=== PATIENT | female | born 1985 | race Caucasian/White ===

== ENCOUNTER 2020-03-19 14:53 | Emergency (ER) | payer MEDICAID, SELFPAY ==
[~2020-03-19] VITALS: Ht 172.7 cm; Wt 100.1 kg
[2020-03-19] MEDS ORDERED: CLON0.5T17 PO (15:06)
[2020-03-19] MEDS ORDERED: SERT25TA85 PO (15:06)
[2020-03-19] MEDS ORDERED: PEPT262T2 PO (15:06)
[2020-03-19 15:44] LABS: BASO % 0.3 % (0.0-1.0); EOS # 0.2 10^3/uL (0.0-0.5); EOS % 1.8 % (0.0-3.0); HEMATOCRIT 38.8 % (36.0-47.0); HEMOGLOBIN 12.5 g/dl (12.0-15.5); LYMPH # 2.2 10^3/uL (1.5-5.0); MEAN CORPUSCULAR HEMOGLOBIN 27.4 pg (27.0-33.0); MEAN CORPUSCULAR HGB CONC 32.2 g/dl (32.0-36.5); MEAN CORPUSCULAR VOLUME 85.1 fl (80.0-96.0); MONO # 0.6 10^3/uL (0.0-0.8); MONO % 6.5 % (0.0-5.0); PLATELET COUNT, AUTOMATED 281 10^3/uL (150-450); RED BLOOD COUNT 4.56 10^6/uL (4.00-5.40)
[2020-03-19 16:08] LABS: ALT/SGPT 22 U/L (12-78); BILIRUBIN,DIRECT < 0.1 MG/DL (0.0-0.2); BILIRUBIN,TOTAL 0.2 MG/DL (0.2-1.0); BLOOD UREA NITROGEN 10 MG/DL (7-18); CALCIUM LEVEL 9.1 MG/DL (8.5-10.1); CARBON DIOXIDE LEVEL 26 MEQ/L (21-32); CHLORIDE LEVEL 107 MEQ/L (98-107); CREATININE FOR GFR 0.83 MG/DL (0.55-1.30); GLOMERULAR FILTRATION RATE > 60.0 (>60); GLUCOSE, FASTING 94 MG/DL (70-100); LIPASE 123 U/L (73-393); POTASSIUM SERUM 3.8 MEQ/L (3.5-5.1); SODIUM LEVEL 138 MEQ/L (136-145); TOTAL PROTEIN 7.7 GM/DL (6.4-8.2)
[2020-03-19 17:55] VITALS: BP 123/80
== END 2020-03-19 18:10 | disposition home or self-care (01) ==
LOC: M ED 14:53
DX: R10.84 Generalized abdominal pain (principal); K21.9 Gastro-esophageal reflux disease without esophagitis; F17.200 Nicotine dependence, unspecified, uncomplicated; Z79.899 Other long term (current) drug therapy; Z88.6 Allergy status to analgesic agent

== ENCOUNTER 2020-03-24 13:29 | Emergency (ER) | payer SELFPAY ==
[~2020-03-24] VITALS: Ht 172.7 cm; Wt 101.0 kg
[~2020-03-24 13:29] MED LIST: CLON0.5T17 PO; PEPT262T2 PO; SERT25TA85 PO
[2020-03-24] MEDS ORDERED: KETOROLAC 60MG 2ML VIAL IM ONE (14:15)
--- NOTE | 2020-03-24 14:58 | REPVR ---
PROCEDURE INFORMATION: Exam: XR Sacrum and Coccyx, 2 or More Views Exam date and time: 03/24/2020 2:30 PM Age: 35 years old Clinical indication: Pain in coccyx area; Additional info: Fell down stairs TECHNIQUE: Imaging protocol: XR of the sacrum and coccyx, 2 or more views. COMPARISON: No relevant prior studies available. FINDINGS: Bones/joints: On the lateral view, suggestion of the linear lucency projecting through the last coccygeal segment. This area is not clearly resolved due to technical factors. Soft tissues: Normal. IMPRESSION: Linear lucency present projecting through last coccygeal segment. This is probably related to a new normal cartilaginous/disc space. Nondisplaced fracture not excluded. MRI or bone scan might also be useful if clinically relevant Electronically signed by: Nataliia Lezama On 03/24/2020 14:57:52 PM
[2020-03-24 15:23] VITALS: BP 131/69
--- NOTE | 2020-03-25 07:57 | ED PDOC ---
Post-Departure Follow-Up coccyx film faxed to dr wells for fu Abhinav Villegas MD Mar 25, 2020 07:57
== END 2020-03-24 15:24 | disposition home or self-care (01) ==
LOC: M ED 13:29
DX: S32.2XXA Fracture of coccyx, initial encounter for closed fracture (principal); W10.8XXA Fall (on) (from) other stairs and steps, initial encounter; Y92.9 Unspecified place or not applicable; Y99.9 Unspecified external cause status; F17.200 Nicotine dependence, unspecified, uncomplicated; Z88.6 Allergy status to analgesic agent
CPT/HCPCS: 72220; 96372; 99283; J1885

== ENCOUNTER 2020-06-19 15:40 | Emergency (ER) | payer OTHER, SELFPAY ==
[~2020-06-19] VITALS: Ht 172.7 cm; Wt 102.5 kg
[2020-06-19] MEDS ORDERED: SERTRALINE HCL 25 MG TABLET PO ONE (16:30)
[2020-06-19] MEDS ORDERED: clonazePAM 0.5 MG TAB PO ONE (16:30)
[2020-06-19] MEDS ORDERED: ZOLO25TA PO (16:31)
[2020-06-19 16:52] VITALS: BP 137/86
[2020-06-19] MEDS ORDERED: ZOLO50TA PO (16:54)
[2020-06-19] MEDS ORDERED: SERTRALINE HCL 50 MG TAB PO ONE (17:00)
== END 2020-06-19 17:16 | disposition home or self-care (01) ==
LOC: M ED 15:40
DX: Z76.0 Encounter for issue of repeat prescription (principal); K21.9 Gastro-esophageal reflux disease without esophagitis; F41.9 Anxiety disorder, unspecified; F33.9 Major depressive disorder, recurrent, unspecified; F17.200 Nicotine dependence, unspecified, uncomplicated; Z88.6 Allergy status to analgesic agent; Z79.899 Other long term (current) drug therapy

== ENCOUNTER 2020-08-23 15:25 | Emergency (ER) | payer MEDICAID, OTHER ==
[~2020-08-23] VITALS: Ht 175.3 cm; Wt 100.0 kg
[~2020-08-23 15:25] MED LIST changes: +ZOLO25TA PO; +ZOLO50TA PO
--- OUTSIDE RECORDS SUMMARY | 2020-08-23 15:34 | CCD ---
Author Author [facility] Organization [facility] Address Unknown Phone Unavailable Care Team Providers Care Second Worker Name Role Phone PETROFF, RIVAS PA Unavailable Unavailable PETROFF, RIVAS PA Unavailable Unavailable PETROFF, RIVAS PA Unavailable Unavailable PETROFF, RIVAS PA Unavailable Unavailable PETROFF, RIVAS PA Unavailable Unavailable PETROFF, RIVAS PA Unavailable Unavailable PETROFF, RIVAS PA Unavailable Unavailable PETROFF, RIVAS PA Unavailable Unavailable TRACIE C JARRETT Unavailable Unavailable NON, PHYSICIAN STAFF Unavailable Unavailable PETROFF, RIVAS Unavailable [facility]available [facility] Unavailable Re-disclosure Warning The records that you are about to access may contain information from federally-assisted alcohol or drug abuse programs. If such information is present, then the following federally mandated warning applies: This information has been disclosed to you from records protected by federal confidentiality rules (42 CFR part 2). The federal rules prohibit you from making any further disclosure of this information unless further disclosure is expressly permitted by the written consent of the person to whom it pertains or as otherwise permitted by 42 CFR part 2. A general authorization for the release of medical or other information is NOT sufficient for this purpose. The Federal rules restrict any use of the information to criminally investigate or prosecute any alcohol or drug abuse patient.The records that you are about to access may contain highly sensitive health information, the redisclosure of which is protected by Article 27-F of the [facility] Public Health law. If you continue you may have access to information: Regarding HIV / AIDS; Provided by facilities licensed or operated by the [facility] Office of Mental Health; or Provided by the [facility] Office for People With Developmental Disabilities. If such information is present, then the following [facility] mandated warning applies: This information has been disclosed to you from confidential records which are protected by state law. State law prohibits you from making any further disclosure of this information without the specific written consent of the person to whom it pertains, or as otherwise permitted by law. Any unauthorized further disclosure in violation of state law may result in a fine or skilled nursing sentence or both. A general authorization for the release of medical or other information is NOT sufficient authorization for further disc losure. Encounters Encounter Providers Location Date Indications Data Source(s ) Emergency Attender: JARRETT HODGESConsultant: STAFF N ON 06/21/2020 01:39:00 PM EST - 06/21/2020 02:26:00 PM [facility] Patient discharged. Emergency Attender: RIVAS GALDAMEZ EMERGENCY ROOM-ER 03/05 01:19:00 PM EDT - 03/22/2020 05:00:00 PM EDT [facility] Patient discharged. Outpatient Attender: RIVAS Siddiqi stacie: RIVAS PASTORConsultant: 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 [id number] Self [id number] [facility] COMM[employer] XIX [id number] 18 [id number] SELF PAY ONLY [id number] SP [id number] SELF PAY [id number] S [id number] O UNAVAILABLE UNAVAILA BLE EMEDNY [id number] SP [id number] Problems, Conditions, and Diagnoses Code Display Name Description Problem Type Effective Dates Data Source(s) Z760 Encounter for issue of repeat prescripti on Encounter for issue of repeat prescription Diagnosis 06/21/2020 01:39:00 PM [facility] F419 Anxiety disorder, unspecified Anxiety disorder, unspec ified Diagnosis 06/21/2020 01:39:00 PM 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 1 OrderSheet [facility] Emergency Department [address] [place] [address] Phone #: ext- [phone] 06/21/2020 13:31 Patient: SAV MANN Sex: F : 1985 Age: 35yWEIGHT:96.1 kg HEIGHT:69 inches BMI:31.3ALLERGIES: CodieneCHIEF COMPLAINT: pt from out of townDIAGNOSIS: Medication refill, Normal ExamLAB ORDERSOrder Description Priority Entered Acknowledged InitialedDIAGNOSTIC STUDY ORDERSOrder Description Priority Entered Acknowledged InitialedMEDICATION/IV/DRIP/FLUID ORDERSOrder Description Priority Entered Acknowledged InitialedAtivan PO 0.5 mg 14:18 06/21/2020 14:24 Jessica Ramirez(NOW) Nick GALDAMEZ;GENERAL ORDERSOrder Description Priority Entered Acknowledged Initialed[Electronically signed by Jessica Ramirez R.N. (14:26 06/21/2020)][Electronically signed by Nick Escalante (19:01 06/22/2020)][Electronically locked by Jessica Ramirez R.N. (14:26 06/21/2020)] Name Value Range Interpretation Code Description Data Danelle rce(s) Supporting Document(s) ID Date Data Source [id number] 06/21/2020 01:39:00 PM [facility] 1 Medication Reconciliation Report [facility] Emergency Department [address] [place] [address] Phone #: ext- [phone] 06/21/2020 13:31 Patient: SAV MANN Sex: F : 1985 Age: 35yWeight: 96.1 kgHeight/Length: 69 in.BMI: 31.3ALLERGIES: Aidee patient's Home Medications are listed below:CONTINUE TAKING THE FOLLOWING MEDICATIONS: clonazePAM Oral, pt has been out of clonazePAM Oral, pt has been out of PRN OTC acid reflux med PRN OTC acid reflux med Sertraline HCl Oral mg, daily Sertraline HCl Oral mg, dailyThe source(s) of the original Home Medication information:patientThe following Medications were given to the patient in the Emergency Department:Ativan [PO] PO 0.5 mg, administered: 14:24 06/21/2020The following Medications were prescribed to the patient:hydroxyzine HCl 25 mg tablet Take 1 tablet three times a day as needed for 10 days -- Dispense 30tablet. Refills: 0. Substitution permitted.Pharmacy - [facility] [phone] [facility] [address] [address] ; [place] [address]. Phone: . -- RUDOLPH Hull Name Value Range Interpretation Code Description Data Danelle rce(s) Supporting Document(s) ID Date Data Source [id number] 06/21/2020 01:39:00 PM EST [facility] 1 Medication Administration Record [facility] Emergency Department [address] [place] [address] Phone #: ext- [phone] 06/21/2020 13:31 Patient: SAV MANN Sex: F : 1985 Age: 35yWeight: 96.1 kgHeight/Length: 69 inBMI: 31.3ALLERGIES: Codiene Date/Time Medication Administered Medication OrderedGiven ATIVAN [PO] (LORAZEPAM) Ativan PO 0.5 mg (NOW)14:24 06/21/2020 Dose: 0.5 mg Tablets Jessica Menendez R.N. Name Value Range Interpretation Code Description Data Danelle rce(s) Supporting Document(s) ID Date Data Source [id number] 06/21/2020 01:39:00 PM EST [facility] 1 General Instructions [facility] Emergency Department [address] [place] [address] Phone #: ext- [phone] 06/21/2020 13:31 Patient: SAV MANN Sex: F : 1985 Age: 35yMedication refill.Normal exam while in the ED.INSTRUCTIONSWarnings: Further evaluation is necessary.Your Current Medications: Your current home medications have been reviewed.CONTINUE TAKING THE FOLLOWING MEDICATIONS:clonazePAM Oral : pt has been out of.clonazePAM Oral : pt has been out of.PRN OTC acid reflux med*.PRN OTC acid reflux med*.Sertraline HCl Oral : mg daily.Sertraline HCl Oral : mg daily.Prescription Medications:hydroxyzine HCl 25 mg tablet Take 1 tablet three times a day as needed for 10 days -- Dispense 30tablet. Refills: 0. Substitution permitted.Pharmacy - [facility] [phone] [facility] [address] [address] ; [place] [address]. .Follow-up:Follow up with your doctor as scheduled. Reason for referral: evaluation and treatment. Summary of careprovided to patient.Understanding of the discharge instructions verbalized by patient. ADDITIONAL INFORMATIONMedical Screening Exam: No EmergencyYou have had a medical screening exam. The results show that you don't have a condition that needsto be treated in the emergency room.You can safely wait until you can see your healthcare provider for evaluation or treatment. It's up toyou to make an appointment for follow-up care. 2 General Instructions [facility] Emergency Department [address] [place] [address] Phone #: ext- [phone] 06/21/2020 13:31 Patient: SAV MANN Sex: F : 1985 Age: 35yMedical emergenciesIf you think you have a medical emergency, please come to the emergency room. That's what we arehere for. A medical emergency might be severe pain. It might be a condition that gets worse. Or itmight be problems with a .The emergency room is open to all who need treatment. But if you don't think you have a serious orlife-threatening problem, try these other choices.If you have a primary care provider:Call your healthcare provider before coming to the emergency room.After office hours, someone from your doctor's office is on-call by phone. The person on-call may beable to give you advice over the phone on how to take care of the problem.You may be able to get an appointment to see your provider or be referred to an urgent care center.If you don't have a primary care provider:Call the referral doctor or clinic shown below during office hours. You should be able to make anappointment to be seen.If you aren't sure whether you are having an emergency, you can always return to the emergencydepartment to be looked at.Phone advice from the emergency departmentWe are here 24 hours a day to give emergency care. But this [facility] does not give phone advice formedical conditions. If you need advice for a condition that can't wait to be seen by your doctor, youwill need to come back to this facility in person. [employer]. [address] [place] [address], [place] [address]. All rights reserved. This information is not intended as asubstitute for professional medical care. Always follow your healthcare professional's instructions. You have been given the following additional information: Medical Screening Exam, Nonemergent 3 General Instructions [facility] Emergency Department [address] [place] [address] Phone #: ext- [phone] 06/21/2020 13:31 Patient: SAV MANN Sex: F : 1985 Age: 35y(Electronically signed by RUDOLPH Hull 06/22/2020 19:01) Name Value Range Interpretation Code Description Data Danelle rce(s) Supporting Document(s) ID Date Data Source [id number] 06/21/2020 01:39:00 PM EST [facility] 1 Clinical Report - Nurses [facility] Emergency Department [address] [place] [address] Phone #: ext- [phone] 06/21/2020 13:31 Patient: SAV MANN Sex: F : 1985 Age: 35yTRIAGEArrived by private vehicle. Historian: patient. ( [facility] pt was denied clonazapam refill at [facility] 2 days ago but sertralinewas refilled.).Triage time: 13:36 06/21/2020. Acuity: LEVEL 5.Chief Complaint: (pt reports she had a panic attack at work. pt was seen at [facility] day before yesterday formed refill and given PSA consult to see a PCM sooner than Aug. Pt reports that she was given sertraline [facility]. Pt has appt start of July. Pt establishing with intake at [facility].).Alert.This started today. --13:42 06/21/20 Cira Huffman R.N.13:36 06/21/20. BP: 130/88. HR: 84. RR: 20. O2 saturation: 99%. Temp: 98.1 F. Pain level now 0/10.--13:42 06/21/20 Cira Huffman R.N.Chief Complaint: PRESCRIPTION REFILL REQUEST. --13:42 06/21/20 Cira Huffman R.N.Weight: 96.1 kg. Height/Length: 69 inches. BMI: 31.3. --13:36 06/21/20 Cira Huffman R.N.MedicationsSertraline HCl Oral mg, daily. Sertraline HCl Oral mg, daily. --13:38 06/21/20 Cira Huffman R.N. clonazePAM Oral (pt has been out of). clonazePAM Oral (pt has been out of). --13:39 06/21/20 Cira Huffman R.N. PRN OTC acid reflux med. PRN OTC acid reflux med. --13:40 06/21/20 Cira Huffman R.N.AllergiesCodiene. --13:38 06/21/20 Cira Huffman R.N.Medication/allergy information source: the patient. --13:42 06/21/20 Cira Huffman R.N.HistoryPAST MEDICAL HX: Last normal menstrual period- 6 days ago.SOCIAL HX: Smoker- current status unknown. Occasional alcohol use. No drug use. The patient wasoffered HIV testing but declined and hepatitis C testing but declined.SELF HARM ASSESSMENT: Self harm assessment was performed. The patient answered "no" to thequestion(s) "Have you recently felt down, depressed, or hopeless?", "Do you have thoughts of harming or 2 Clinical Report - Nurses [facility] Emergency Department [address] [place] [address] Phone #: [phone]- [phone] 06/21/2020 13:31 Patient: SAV MANN Sex: F : 1985 Age: 35y killing yourself?", "Do you have a plan for harming or killing yourself?", "Have you recently had thoughts about harming or killing others?", "Do you have any dangerous items in your possession?", "Have you noticed less interest or pleasure in doing things?", "Are you here because you tried to hurt yourself?" and "Have you ever tried to hurt yourself before today?". ABUSE ASSESSMENT: Abuse assessment. No suspicion of abuse. No report of abuse. NUTRITIONAL RISK ASSESSMENT: The nutritional risk assessment revealed no deficiencies. FUNCTIONAL ASSESSMENT: Functional assessment: no impairments noted. LEARNING NEEDS ASSESSMENT: The learning needs assessment revealed no barriers. FALL RISK ASSESSMENT: Fall risk assessment completed per protocol. SKIN INTEGRITY ASSESSMENT: Skin integrity risk assessment completed. No skin integrity risk identified. --13:42 06/21/20 Cira Huffman R.N. SOCIAL HX: The patient has not traveled outside the [place] Infectious disease exposure: No infectious disease exposure. --14:26 06/21/20 Jessica Ramirez R.N.PHYSICAL ASSESSMENTGENERAL / NEURO / PSYCH: Alert. Oriented X 4. Appears in no acute distress.HEENT: Mucous membranes are pink.RESPIRATORY: Respirations not labored. CVS: Pulses within normal limits.GI / : Abdomen soft and nontender.SKIN: Skin is warm and dry. --13:43 06/21/20 Cira Huffman R.N.NURSING PROGRESS NOTESThe plan of care for this patient has been created. Head of bed elevated. Reassurance given. Call lightplaced in reach. Bed placed in lowest position. Brakes of bed on. Patient ready for evaluation. --13: Cira Huffman R.N. 14:24 06/21/2020 Ativan (LORazepam) PO Tablets 0.5 mg given. Allergies verified and confirmed 5 rights. Information reviewed with patient including reason for taking this medication, signs of allergic reaction, precautions and sedative warning. Verbalizes understanding. --14:24 06/21/20 Jessica Ramirez R.N.DISPOSITION / DISCHARGE Condition at departure: unchanged. No learning barriers present. Discharge instructions provided and reviewed with the patient. Reviewed medication(s) side effects, precautions, dosing and course information. Prescription(s) given to the patient and sent electronically to pharmacy. Patient verbalized understanding. Written instructions provided in Russian. The patient was discharged home and accompanied by horse trekking guide. She left ambulatory and via private vehicle. Chrome Tanner driving. --14:25 3 Clinical Report - Nurses [facility] Emergency Department [address] [place] [address] Phone #: ext- [phone] 06/21/2020 13:31 [id number] Sex[facility] : 1985 Age: 35y 06/21/20 Jessica Ramirez R.N. 14:24 06/21/20. BP: 126/98. MAP: 107. HR: 86. RR: 17. O2 saturation: 97%. Temp: 98 F. Pain level now: 0/10. --14:25 06/21/20 Jessica Ramirez R.N. Departure time: 14:25 06/21/2020. --14:25 06/21/20 Jessica Ramirez R.N.Locked/Released at 06/21/2020 14:26 by Jessica Ramirez R.N. Name Value Range Interpretation Code Description Data Danelle rce(s) Supporting Document(s) ID Date Data Source [id number] 06/21/2020 01:39:00 PM EST [facility] 1 Clinical Report - Physicians/Mid Levels [facility] Emergency Department [address] [place] [address] Phone #: ext- [phone] 06/21/2020 13:31 Patient: SAV MANN Sex: F : 1985 Age: 35y Time Seen: 14:05 06/21/2020. Arrived- By private vehicle. Historian- patient.HISTORY OF PRESENT ILLNESS Chief Complaint: Anxiety and out of medication. PRESCRIPTION REFILL REQUEST. Patient is from out of town. This started 2 days ago; pt states she was told to come here by behavioral health for a couple of weeks worth of med refill. pt was denied clonazapam refill at [facility] 2 days ago but sertraline was refilled. and is still present. At its maximum, se verity described as moderate. When seen in the E.D., severity described as moderate. No loss of appetite, weight loss, headache, visual disturbance or fatigue. No muscle aches or weakness. Denies sleep problem. No decreased urine output. Similar symptoms previously. Patient has had similar symptoms several times. Recent medical care: The patient was seen recently at another facility in the emergency department.REVIEW OF SYSTEMSLast normal menstrual period- 6 days ago. No fever, sore throat, sinus drainage, nasal congestion orcough. No difficulty breathing, chest pain, abdominal pain, nausea or vomiting. No diarrhea, black stools,bloody stools, chills or difficulty with urination. No abnormal bleeding, skin rash, back pain, calf pain orheadache. No blackouts or double vision. No difficulty with ambulation.SOCIAL HISTORYSmoker - current status unknown. No alcohol use or drug use.PHYSICAL EXAMVital Signs: 06/21/2020 13:36 BP: 130/88. MAP: 102. HR: 84. RR: 20. O2 saturation: 99%. Temp: 98.1 F.Have been reviewed as normal. Oxygen saturation normal.Appearance: Alert. No acute distress.Eyes: Pupils equal, round and reactive to light. Eyes normal inspection.ENT: Ears normal. Nose normal. Pharynx normal.Neck: Normal inspection.CVS: Normal heart rate. Heart sounds normal.Respiratory: No respiratory distress. Breath sounds normal.Abdomen: No visible injury. Soft and nontender. Bowel sounds normal. No organomegaly. No mass.Back: Normal inspection.Skin: Skin warm and dry. Normal skin color. No rash. Normal skin turgor.Extremities: Extremities exhibit normal ROM. No lower extremity edema.Neuro: Oriented X 3.PROGRESS AND PROCEDURESCourse of Care: 14:Jun 21 2020. Evaluation after observation. (Discussed need for follow up with [facility] Clinical Report - Physicians/Mid Levels [facility] Emergency Department [address] [place] [address] Phone #: ext- [phone] 06/21/2020 13:31 Patient: SAV MANN [facility]#: [id number] Sex: F : 1985 Age: 35y and PCP for refill of clonazepam and pt is agreeable with dx and tx plan.). Patient counseled in person regarding the patient's stable condition, diagnosis and need for follow-up. Patient agrees with plan of care. 14:Jun 21 2020. Disposition: Discharged home in good and improved condition (14:16 Jun 21 2020).CLINICAL IMPRESSION Medication refill. Normal exam while in the ED.INSTRUCTIONS Warnings: Further evaluation is necessary. Your Current Medications: Your current home medications have been reviewed. CONTINUE TAKING THE FOLLOWING MEDICATIONS: clonazePAM Oral : pt has been out of. clonazePAM Oral : pt has been out of. PRN OTC acid reflux med*. PRN OTC acid reflux med*. Sertraline HCl Oral : mg daily. Sertraline HCl Oral : mg daily. Prescription Medications: hydroxyzine HCl 25 mg tablet Take 1 tablet three times a day as needed for 10 days -- Dispense 30 tablet. Refills: 0. Substitution permitted. Pharmacy - [facility] [phone] [facility] [address] [address] [address] ; [place] [address]. . Follow-up: Follow up with your doctor as scheduled. Reason for referral: evaluation and treatment. Summary of care provided to patient. Understanding of the discharge instructions verbalized by patient.(Electronically signed by RUDOLPH Hull 06/22/2020 19:01) 3Clinical Report - Physicians/Mid Levels [facility] Emergency Department [address] [place] [address] Phone #: ext- [phone] 06/21/2020 13:31 Patient: SAV MANN Sex: F : 1985 Age: 35y Name Value Range Interpretation Code Description Data Danelle rce(s) Supporting Document(s) ID Date Data Source [id number] 03/22/2020 06:55:00 PM [facility] Patient: SAV MANN Observation Rep ort - Physicians/Mid Levels Healthcare.VisitID: [id number] [place] [address] [phone], FRegistration Date/Time: 03/22/2020 12:00 Weight:97.5 kg (S). Height/Length:68 inches (S). BMI:32.7 FAMILY HISTORYPaternal grandmother: Cancer. Mother: Heart Disease. Father: Hypertension. INSTRUCTIONSYour Current Medications: Your current home medications have been reviewed. CONTINUE TAKING THE FOLLOWING MEDICATIONS:clonazePAM Oral : Tablet 0.5 mg, 1 tablet 2x a day, Last: 03/22/20201100. Phazyme Oral : Capsule 180 mg, 2 capsules daily, Last: 03/21/20202000. Zoloft Oral : 75 mg daily, Last: 03/21/20201800. (Electronically signed by Rivas Pastor P.A. 03/22/2020 18:51) Name Value Range Interpretation Code Description Data Danelle rce(s) Supporting Document(s) ID Date Data Source [id number] 03/22/2020 04:37:00 PM EDT [facility] TSYSORDER [id number] Name Value Range Interpretation Code Description Data Danelle rce(s) Supporting Document(s) TROPONIN I < 0.017 ng/mL 0.0-0.056 [facility] ID Date Data Source [id number] 03/22/2020 02:17:[address] [facility] DATE OF EXAMINATION: 03/22/2020 12:44 EDT CHEST 2 VIEWS HISTORY: Shortness of breath TECHNIQUE: PA and lateral radiographs of the chest COMPARISON: None. FINDINGS: No evidence of focal consolidation, pneumothorax or large pleural effusion.Lungs are clear. Mediastinal structures are unremarkable. No aggressive osseouslesions. IMPRESSION: No focal consolidation. Electronically signed in [id number] by: Caren Robledo M.D. 03/22/2020 14:11 EDT Name Value Range Interpretation Code Description Data Danelle rce(s) Supporting Document(s) ID Date Data Source [id number] 03/22/2020 01:45:00 PM EDT [facility] TSYSORDER [id number] Name Value Range Interpretation Code Description Data Danelle rce(s) Supporting Document(s) LACTIC ACID 0.9 mmol/L 0.4-2.0 [facility] ID Date Data Source [id number] 03/22/2020 01:45:00 PM EDT [facility] Name Value Range Interpretation Code Description Data Danelle rce(s) Supporting Document(s) TROPONIN I < 0.017 ng/mL 0.0-0.056 [facility] ID Date Data Source [id number] 03/22/2020 01:45:00 PM EDT [facility] Name Value Range Interpretation Code Description Data Danelle rce(s) Supporting Document(s) GLUCOSE 89 mg/dL 74-106 [facility] BLOOD UREA NITROGEN 10 mg/dL 7-18 [facility] CREATININE 0.9 mg/dL 0.6-1.0 [facility] SODIUM 139 mmol/L 136-145 [facility] POTASSIUM 3.7 mmol/L 3.5-5.1 [facility] CHLORIDE 101 mmol/L 98-107 [facility] CO2 29 mmol/L 21-32 [facility] CALCIUM 8.5 mg/dL 8.5-10.1 [facility] ANION GAP 9.0 mmol/L 5-12 [facility] GLOMERULAR FILTRATION RATE 71 mL/min [facility] GFR IS CALCULATED IN mL/min/1.73m2 BAR L FUNCTION: >90MILDLY DECREASED: 60-89MILDY TO MODERATELY DECREASED: 45-59 MODERATELY TO SEVERELY DECREASED: 30-44SEVERELY DECREASED: 15-29RENAL FAILURE: <15 AST 15 U/L 15-37 [facility] ALT 23 U/L 12-78 [facility] ALKALINE PHOSPHATASE 87 U/L 46-116 [facility] pital TOTAL BILIRUBIN 0.2 mg/dL 0.2-1.0 [facility] TOTAL PROTEIN 7.7 g/dl 6.4-8.2 [facility] ALBUMIN 4.2 gm/dL 3.4-5.0 [facility] ID Date Data Source [id number] 03/22/2020 01:39:[address] [id number] Name Value Range Interpretation Code Description Data [facility] rce(s) Supporting Document(s) URINE RBC TNTC /hpf 0-3 H [facility] URINE WBC 0-2 /hpf 0-5 H [facility] URINE BACTERIA TRACE NONE SEEN H [facility] ID Date Data Source [id number] 03/22/2020 01:33:[address] [facility] ital TSYSORDER [id number] Name Value Range Interpretation Code Description Data [facility] rce(s) Supporting Document(s) URINE COLOR. YELLOW [facility] URINE APPEARANCE CLEAR [facility] l SPECIFIC GRAVITY,URINE 1.020 1.001-1.035 [facility] URINE LEUKOCYTE ESTERASE NEGATIVE NEGATIVE [facility] URINE NITRATE NEGATIVE NEGATIVE [facility] PH,URINE 7.0 5.0-9.0 [facility] URINE PROTEIN NEGATIVE mg/dL NEGATIVE [facility] URINE GLUCOSE (UA) NEGATIVE mg/dL NEGATIVE [facility] URINE KETONE NEGATIVE mg/dL NEGATIVE [facility] URINE UROBILINOGEN NORMAL(0.2-1) mg/dL 0-1 R [facility] URINE BILIRUBIN NEGATIVE NEGATIVE [facility] URINE BLOOD 3+(LARGE) NEGATIVE H [facility] ID Date Data Source [id number] 03/22/2020 01:34:00 PM EDT [facility] TSYSORDER [id number] Name Value Range Interpretation Code Description Data Danelle rce(s) Supporting Document(s) HCG,SERUM NEGATIVE NEGATIVE [facility] False negative results may occur when th e levels of hCG arebelow the sensitivity level of the test. If isstill suspected, a first morning urine specimen should becollected 48hrs later.This test has a sensitivity of 10mIU/mL in serum fpv76tKX/mL in urine. ID Date Data Source [id number] 03/22/2020 01:21:00 PM EDT [facility] TSYSORDER [id number] Name Value Range Interpretation Code Description Data Danelle rce(s) Supporting Document(s) WHITE BLOOD COUNT 9.5 K/mm3 4.0-10.0 [facility] RED BLOOD COUNT 4.51 M/mm3 4.00-5.50 [facility] HEMOGLOBIN 12.2 gm/dL 12.0-16.0 [facility] HEMATOCRIT 37.1 % 36.0-48.8 [facility] MEAN CELL VOLUME 82.3 fl 80-96 [facility] MEAN CORPUSCULAR HEMOGLOBIN 27.1 pg 27.0-31.0 [facility] MEAN CORPUSCULAR HGB CONC 32.9 g/dl 32.0-36.0 [facility] RED CELL DISTRIBUTION WIDTH 14.8 % 10.0-14.5 H [facility] PLATELET COUNT 303 K/mm3 172-450 [facility] MEAN PLATELET VOLUME 10.7 fl 9.0-13.0 [facility] pital GRAN % 68.6 % 50-80.0 [facility] IG% 0.1 % 0.0-0.2 [facility] LYMPH % 22.3 % 25.0-50.0 L [facility] MONO % 6.6 % 2.0-10.0 [facility] EOS % 1.9 % 0-5.0 [facility] BASO % 0.5 % 0.0-2.0 [facility] GRAN # 6.5 K/mm3 2.0-8.00 [facility] IG# 0.0 K/mm3 0.0-0.2 [facility] LYMPH # 2.1 K/mm3 1.0-5.0 [facility] MONO # 0.6 K/mm3 0.10-1.20 [facility] EOS # 0.2 K/mm3 0.0-0.5 [facility] BASO # 0.1 K/mm3 0.0-0.2 [facility] Procedure
[2020-08-23] MEDS ORDERED: NS 1,000 ML IV ONE (17:00)
[2020-08-23] MEDS ORDERED: KETOROLAC 30 MG/ML 1ML VIAL IV ONE (17:00)
--- OUTSIDE RECORDS SUMMARY | 2020-08-23 17:06 | CCD ---
Author Author [facility] Organization [facility] Address Unknown Phone Unavailable Care Team Providers Care Ton Container Shipper Name Role Phone PETROFF, RIVAS PA Unavailable [...] is protected by Article 27-F of the [facility] Public Health law. If you continue you may have access to information: Regarding HIV / AIDS; Provided by facilities licensed or operated by the [facility] Office of Mental Health; or Provided by the [facility] Office for People With Developmental Disabilities. If such information is present, then the following [facility] mandated warning applies: This information has [...] law may result in a fine or correction sentence or both. A general authorization for the release of medical or other information is NOT sufficient authorization for further disc losure. Encounters Encounter Providers Location Date Indications Data Source(s ) Emergency Attender: JARRETT HODGESConsultant: STAFF N ON 06/21/2020 01:39:00 PM EST - 06/21/2020 02:26:00 PM [facility] Patient discharged. Emergency Attender: RIVAS GALDAMEZ EMERGENCY ROOM-ER 03/05 01:19:00 PM EDT - 03/22/2020 05:00:00 PM EDT [facility] Patient discharged. Outpatient Attender: RIVAS Siddiqi stacie: RIVAS PASTORConsultant: [facility] [id number] 03/22/2020 01:00:00 PM EDT [facility] Insurance Providers Payer name Policy type / Coverage type Policy ID Covered constitution party ID Covered constitution party's relationship to quintana Policy Quintana Plan Information [facility] [id number] SP [id number] [facility] [id number] SP [id number] ESCREEN NATIONAL [employer]OUNT emp [id number] Employee [id number] [employer] [id number] Self [id number] [facility] [employer] [employer] XIX [id number] 18 [id number] SELF PAY ONLY [id number] SP [id number] SELF PAY [id number] S [id number] O UNAVAILABLE UNAVAILA BLE EMEDNY [id number] SP [id number] Problems, Conditions, and Diagnoses Code Display Name Description Problem Type Effective Dates Data Source(s) Z760 Encounter for issue of repeat prescripti on Encounter for issue of repeat prescription Diagnosis 06/21/2020 01:39:00 PM [facility] F419 Anxiety disorder, unspecified Anxiety disorder, unspec ified Diagnosis 06/21/2020 01:39:00 PM [facility] Z79.899 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 long term care pharmacist (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) drug therapy O THER ALF (CURRENT) DRUG THERAPY Diagnosis 03/22/2020 01:19:00 PM EDT [facility] F17.210 Nicotine dependence, cigarettes, uncompl icated NICOTINE DEPENDENCE, CIGARETTES, UNCOMPLICATED Diagnosis 03/22/2020 01:19:00 PM EDT [facility] ospital R55 Syncope and collapse SYNCOPE AND COLLAPSE Diagnosis 03/22/2020 01:19:00 PM EDT [facility] Results ID Date Data Source [id number] 06/21/2020 01:39:00 PM [facility] 1 OrderSheet [facility] Emergency Department [address] [place] [address] Phone #: ext- [phone] 06/21/2020 13:31 Patient: [...] rce(s) Supporting Document(s) ID Date Data Source [id number] 06/21/2020 01:39:00 PM [facility] 1 Medication Reconciliation Report [facility] Emergency Department [address] [place] [address] Phone #: ext- [phone] 06/21/2020 13:31 Patient: [...] Dispense 30tablet. Refills: 0. Substitution permitted.Pharmacy - [facility] [phone] ; [place] [address]. Phone: . -- RUDOLPH Hull Name Value Range Interpretation Code Description Data Danelle rce(s) Supporting Document(s) ID Date Data Source [id number] 06/21/2020 01:39:00 PM EST [facility] 1 Medication Administration Record [facility] Emergency Department [address] [place] [address] Phone #: ext- [phone] 06/21/2020 13:31 Patient: SAV MANN Sex: F : 1985 Age: 35yWeight: 96.1 kgHeight/Length: 69 inBMI: 31.3ALLERGIES: Codiene Date/Time Medication Administered Medication OrderedGiven ATIVAN [PO] (LORAZEPAM) Ativan PO 0.5 mg (NOW)14:24 06/21/2020 Dose: 0.5 mg Tablets Jessica Menendez R.N. Name Value Range Interpretation Code Description Data Danelle rce(s) Supporting Document(s) ID Date Data Source [id number] 06/21/2020 01:39:00 PM EST [facility] 1 General Instructions [facility] Emergency Department [address] [place] [address] Phone #: ext- [phone] 06/21/2020 13:31 Patient: [...] Dispense 30tablet. Refills: 0. Substitution permitted.Pharmacy - [facility] [phone] ; [place] [address]. .Follow-up:Follow up with your doctor as scheduled. [...] appointment for follow-up care. 2 General Instructions [facility] Emergency Department [address] [place] [address] Phone #: ext- [phone] 06/21/2020 13:31 Patient: SAV MANN Sex: F [...] day to give emergency care. But [facility] does not give phone advice formedical conditions. If you need advice for a condition that can't wait to be seen by your doctor, youwill need to come back to this facility in person. The [employer]. [address] [place] [address], [place] [address]. All rights reserved. This information is not intended as asubstitute for professional medical care. Always follow your healthcare professional's instructions. You have been given the following additional information: Medical Screening Exam, Nonemergent 3 General Instructions [facility] Emergency Department [address] [place] [address] Phone #: ext- [phone] 06/21/2020 13:31 Patient: SAV MANN Sex: F : 1985 Age: 35y(Electronically signed by RUDOLPH Hull 06/22/2020 19:01) Name Value Range Interpretation Code Description Data Danelle rce(s) Supporting Document(s) ID Date Data Source [id number] 06/21/2020 01:39:00 PM EST [facility] 1 Clinical Report - Nurses [facility] Emergency Department [address] [place] [address] Phone #: ext- [phone] 06/21/2020 13:31 Patient: SAV MANN Sex: F : 1985 Age: 35yTRIAGEArrived by private vehicle. Historian: patient. ( pt [facility]. pt was [facility] 2 days ago but sertralinewas refilled.).Triage time: 13:36 06/21/2020. Acuity: LEVEL 5.Chief Complaint: (pt reports she had a panic attack at work. pt was seen at [facility] day before yesterday formed refill and given PSA consult to see a PCM sooner than Aug. Pt reports that she was given sertraline [facility]. Pt has appt start of July. Pt establishing with intake at [facility].).Alert.This started today. --13:42 06/21/20 Cira [...] harming or 2 Clinical Report - Nurses [facility] Emergency Department [address] [place] [address] Phone #: fir- [phone] 06/21/2020 13:31 Patient: SAV MANN Sex: F [...] Patient verbalized understanding. Written instructions provided in Burmese. 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 She left ambulatory and via private vehicle. 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 --14:25 3 Clinical Report - Nurses [facility] Emergency Department [address] [place] [address] Phone #: ext- [phone] 06/21/2020 13:31 [id number] Sex: F : 1985 Age: 35y 06/21/20 [...] rce(s) Supporting Document(s) ID Date Data Source [id number] 06/21/2020 01:39:00 PM EST [facility] 1 Clinical Report - Physicians/Mid Levels [facility] Emergency Department [address] [place] [address] Phone #: ext- [phone] 06/21/2020 13:31 Patient: [...] refill. pt was denied clonazapam refill at [facility] 2 days ago but sertraline was refilled. [...] observation. (Discussed need for follow up with [facility] Clinical Report - Physicians/Mid Levels [facility] Emergency Department [address] [place] [address] Phone #: ext- [phone] 06/21/2020 13:31 Patient: SAV MANN [facility]#: [id number] Sex: F : 1985 Age: 35y and [...] tablet. Refills: 0. Substitution permitted. Pharmacy - [facility] [phone] ; [place] [address]. . Follow-up: Follow up with your doctor as scheduled. Reason for referral: evaluation and treatment. Summary of care provided to patient. Understanding of the discharge instructions verbalized by patient.(Electronically signed by RUDOLPH Hull 06/22/2020 19:01) 3Clinical Report - Physicians/Mid Levels [facility] Emergency Department [address] [place] [address] Phone #: ext- [phone] 06/21/2020 13:31 Patient: SAV MANN Sex: F : 1985 Age: 35y Name Value Range Interpretation Code Description Data Danelle rce(s) Supporting Document(s) ID Date Data Source [id number] 03/22/2020 06:55:00 PM EDT [facility] Patient: SAV MANN Observation Rep ort - Physicians/Mid Levels [facility]VisitID: [id number] [place] [address] [phone], FRegistration Date/Time: 03/22/2020 12:00 Weight:97.5 kg (S). [...] rce(s) Supporting Document(s) ID Date Data Source [id number] 03/22/2020 04:37:00 PM EDT [facility] TSYSORDER [id number] Name Value Range Interpretation Code Description Data Danelle rce(s) Supporting Document(s) TROPONIN I < 0.017 ng/mL 0.0-0.056 [facility] ID Date Data Source [id number] 03/22/2020 02:17:00 PM [facility]T [facility] DATE OF [facility]AMINATION: 03/22/2020 12:44 EDT CHEST [...] rce(s) Supporting Document(s) ID Date Data Source [id number] 03/22/2020 01:45:00 PM EDT [facility] TSYSORDER [id number] Name Value Range Interpretation Code Description Data Danelle rce(s) Supporting Document(s) LACTIC ACID 0.9 mmol/L 0.4-2.0 [facility] ID Date Data Source [id number] 03/22/2020 01:45:00 PM EDT [facility] Name Value Range Interpretation Code Description Data Danelle rce(s) Supporting Document(s) TROPONIN I < 0.017 ng/mL 0.0-0.056 [facility] ID Date Data Source [id number] 03/22/2020 01:45:00 PM EDT [facility] Name Value Range Interpretation Code Description Data Danelle rce(s) Supporting Document(s) GLUCOSE 89 mg/dL 74-106 [facility] BLOOD UREA NITROGEN 10 mg/dL 7-18 [facility] ital CREATININE 0.9 mg/dL 0.6-1.0 [facility] SODIUM 139 mmol/L 136-145 [facility] POTASSIUM 3.7 mmol/L 3.5-5.1 [facility] CHLORIDE 101 mmol/L 98-107 [facility] CO2 29 mmol/L 21-32 [facility] CALCIUM 8.5 mg/dL 8.5-10.1 [facility] ANION GAP 9.0 mmol/L 5-12 [facility] GLOMERULAR FILTRATION RATE 71 mL/min [facility] GFR IS CALCULATED IN mL/min/1.73m2 BAR L FUNCTION: >90MILDLY DECREASED: 60-89MILDY TO MODERATELY DECREASED: 45-59 MODERATELY TO SEVERELY DECREASED: 30-44SEVERELY DECREASED: 15-29RENAL FAILURE: <15 AST 15 U/L 15-37 [facility] ALT 23 U/L 12-78 [facility] ALKALINE PHOSPHATASE 87 U/L 46-116 [facility] pital TOTAL BILIRUBIN 0.2 mg/dL 0.2-1.0 [facility] TOTAL PROTEIN 7.7 g/dl 6.4-8.2 [facility] ALBUMIN 4.2 gm/dL 3.4-5.0 [facility] ID Date Data Source [id number] 03/22/2020 01:39:00 PM EDT [facility] [id number] Name Value Range Interpretation Code Description Data [facility] rce(s) Supporting Document(s) URINE RBC TNTC /hpf 0-3 H [facility] URINE WBC 0-2 /hpf 0-5 H [facility] URINE BACTERIA TRACE NONE SEEN H [facility] ID Date Data Source [id number] 03/22/2020 01:33:00 PM EDT [facility] ital TSYSORDER [id number] Name Value Range Interpretation Code Description Data [facility] rce(s) Supporting Document(s) URINE COLOR. YELLOW [facility] URINE APPEARANCE CLEAR [facility] l SPECIFIC GRAVITY,URINE 1.020 1.001-1.035 [facility] URINE LEUKOCYTE ESTERASE NEGATIVE NEGATIVE [facility] URINE NITRATE NEGATIVE NEGATIVE [facility] PH,URINE 7.0 5.0-9.0 [facility] URINE PROTEIN NEGATIVE mg/dL NEGATIVE [facility] URINE GLUCOSE (UA) NEGATIVE mg/dL NEGATIVE [facility] URINE KETONE NEGATIVE mg/dL NEGATIVE [facility] URINE UROBILINOGEN NORMAL(0.2-1) mg/dL 0-1 R [facility] URINE BILIRUBIN NEGATIVE NEGATIVE [facility] URINE BLOOD 3+(LARGE) NEGATIVE H [facility] ID Date Data Source [id number] 03/22/2020 01:34:00 PM EDT [facility] TSYSORDER [id number] Name Value Range Interpretation Code Description Data Danelle rce(s) Supporting Document(s) HCG,SERUM NEGATIVE NEGATIVE [facility] False negative results may occur when th e levels of hCG arebelow the sensitivity level of the test. If isstill suspected, a first morning urine specimen should becollected 48hrs later.This test has a sensitivity of 10mIU/mL in serum dbn74mMN/mL in urine. ID Date Data Source [id number] 03/22/2020 01:21:00 PM EDT [facility] TSYSORDER [id number] Name Value Range Interpretation Code Description Data Danelle rce(s) Supporting Document(s) WHITE BLOOD COUNT 9.5 K/mm3 4.0-10.0 [facility] RED BLOOD COUNT 4.51 M/mm3 4.00-5.50 [facility] HEMOGLOBIN 12.2 gm/dL 12.0-16.0 [facility] HEMATOCRIT 37.1 % 36.0-48.8 [facility] MEAN CELL VOLUME 82.3 fl 80-96 [facility] MEAN CORPUSCULAR HEMOGLOBIN 27.1 pg 27.0-31.0 [facility] MEAN CORPUSCULAR HGB CONC 32.9 g/dl 32.0-36.0 [facility] RED CELL DISTRIBUTION WIDTH 14.8 % 10.0-14.5 H [facility] PLATELET COUNT 303 K/mm3 172-450 [facility] MEAN PLATELET VOLUME 10.7 fl 9.0-13.0 [facility] pital GRAN % 68.6 % 50-80.0 [facility] IG% 0.1 % 0.0-0.2 [facility] LYMPH % 22.3 % 25.0-50.0 L [facility] MONO % 6.6 % 2.0-10.0 [facility] EOS % 1.9 % 0-5.0 [facility] BASO % 0.5 % 0.0-2.0 [facility] GRAN # 6.5 K/mm3 2.0-8.00 [facility] IG# 0.0 K/mm3 0.0-0.2 [facility] LYMPH # 2.1 K/mm3 1.0-5.0 [facility] MONO # 0.6 K/mm3 0.10-1.20 [facility] EOS # 0.2 K/mm3 0.0-0.5 [facility] BASO # 0.1 K/mm3 0.0-0.2 [facility] Procedure
[2020-08-23 17:29] LABS: BASO # 0.1 10^3/uL (0.0-0.2); BASO % 0.7 % (0.0-1.0); EOS # 0.2 10^3/uL (0.0-0.5); HEMATOCRIT 37.9 % (36.0-47.0); HEMOGLOBIN 11.8 g/dl (12.0-15.5); LYMPH # 2.2 10^3/uL (1.5-5.0); LYMPH % 29.3 % (24.0-44.0); MEAN CORPUSCULAR HEMOGLOBIN 26.7 pg (27.0-33.0); MEAN CORPUSCULAR HGB CONC 31.1 g/dl (32.0-36.5); MEAN CORPUSCULAR VOLUME 85.7 fl (80.0-96.0); MONO # 0.5 10^3/uL (0.0-0.8); MONO % 6.6 % (2.0-8.0); NEUTROPHILS # 4.6 10^3/uL (1.5-8.5); PLATELET COUNT, AUTOMATED 249 10^3/uL (150-450); RED BLOOD COUNT 4.42 10^6/uL (4.00-5.40); WHITE BLOOD COUNT 7.5 10^3/uL (4.0-10.0)
[2020-08-23 17:44] LABS: INR 0.97; PROTHROMBIN TIME 13.1 SECONDS (12.5-14.3)
[2020-08-23 17:45] LABS: PARTIAL THROMBOPLASTIN TIME 27.1 SECONDS (24.2-38.5)
[2020-08-23 17:47] LABS: D-DIMER QUANT 359.19 ng/ml (<500)
[2020-08-23 18:01] LABS: ALBUMIN 3.6 GM/DL (3.2-5.2); ALT/SGPT 19 U/L (12-78); BILIRUBIN,DIRECT < 0.1 MG/DL (0.0-0.2); BILIRUBIN,TOTAL 0.2 MG/DL (0.2-1.0); CK-MB VALUE MASS < 1.0 NG/ML (<3.6); CPK CREATINE PHOSPHOKINASE 75 U/L (26-192); FREE T4 0.68 NG/DL (0.76-1.46); LIPASE 152 U/L (73-393); MB/CK RELATIVE INDEX 1.33 (< OR =4); TOTAL PROTEIN 6.5 GM/DL (6.4-8.2); TROPONIN I < 0.02 NG/ML (< 0.10)
--- NOTE | 2020-08-23 18:02 | REP ---
INDICATION: pain. COMPARISON: None. TECHNIQUE: Three views FINDINGS: AC joint shows no widening of the joint space or elevation of the clavicle in relationship to the acromion. There is no fracture of the clavicle, scapula, humerus or adjacent ribs. Glenohumeral joint unremarkable. No abnormal soft tissue calcifications are seen. IMPRESSION: 1. Negative left shoulder series. <Electronically signed by Santo Navarro > 08/23/20 1118
[2020-08-23 18:55] VITALS: BP 127/88
--- NOTE | 2020-08-24 20:45 | ECGEPIP ---
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
== END 2020-08-23 19:04 | disposition home or self-care (01) ==
LOC: M ED 15:25
DX: E03.9 Hypothyroidism, unspecified (principal); S46.912A Strain of unspecified muscle, fascia and tendon at shoulder and upper arm level, left arm, initial encounter; X58.XXXA Exposure to other specified factors, initial encounter; Y92.9 Unspecified place or not applicable; Y93.9 Activity, unspecified; Y99.9 Unspecified external cause status; F17.200 Nicotine dependence, unspecified, uncomplicated; Z88.6 Allergy status to analgesic agent; Z79.899 Other long term (current) drug therapy
CPT/HCPCS: 73030; 80047; 80076; 81001; 82550; 82553; 83690; 84439; 84443; 84702; 85025; 85379; 85610; 85730; 93005; 96361; 96374; 99284; J1885

== ENCOUNTER 2020-08-26 16:22 | Emergency (ER) | payer OTHER ==
[~2020-08-26] VITALS: Ht 175.3 cm; Wt 100.2 kg
[2020-08-26 16:23] VITALS: BP 132/89
--- OUTSIDE RECORDS SUMMARY | 2020-08-26 16:32 | CCD ---
Author Author [facility] Organization [facility] Address Unknown Phone Unavailable Care Team Providers Care Fence Installer Helper Name Role Phone PETROFF, RIVAS PA Unavailable [...] is protected by Article 27-F of the [facility] Public Health law. If you continue you may have access to information: Regarding HIV / AIDS; Provided by facilities licensed or operated by the [facility] Office of Mental Health; or Provided by the [facility] Office for People With Developmental Disabilities. If such information is present, then the following [facility] mandated warning applies: This information has [...] law may result in a fine or longterm sentence or both. A general authorization for the release of medical or other information is NOT sufficient authorization for further disc losure. Encounters Encounter Providers Location Date Indications Data Source(s ) Outpatient 08/23/2020 03:08:53 PM EST [facility] ([facility]) Emergency Attender: JARRETT HODGESConsultant: STAFF N ON 06/21/2020 01:39:00 PM EST - 06/21/2020 02:26:00 [facility] Patient [facility]. Emergency Attender: RIVAS GALDAMEZ EMERGENCY ROOM-ER 03/05 01:19:00 PM EDT - 03/22/2020 05:00:00 PM EDT [facility] Patient discharged. Outpatient Attender: RIVAS Siddiqi stacie: RIVAS PASTORConsultant: 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 [id number] Self [id number] [facility] [id number] SP [id number] [employer] COMMUNITY PLAN XIX [id number] 18 [id number] SELF PAY ONLY [id number] SP [id number] SELF PAY [id number] S [id number] O UNAVAILABLE UNAVAILA BLE EMEDNY [id number] SP [id number] Problems, Conditions, and Diagnoses Code Display Name Description Problem Type Effective Dates Data Source(s) Z760 Encounter for issue of repeat prescripti on Encounter for issue of repeat prescription Diagnosis 06/21/2020 01:39:00 PM [facility] F419 Anxiety disorder, unspecified Anxiety disorder, unspec ified Diagnosis 06/21/2020 01:39:00 PM [facility] Z79.899 Other group home (current) drug therapy 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 Emergency Department [address] [place] [address] Phone #: ext- [phone] 06/21/2020 13:31 Patient: SAV MANN Sex: F : 1985 Age: 35yWEIGHT:96.1 kg HEIGHT:69 inches BMI:31.3ALLERGIES: CodieneCHIEF COMPLAINT: pt from out of townDIAGNOSIS: Medication refill, Normal ExamLAB ORDERSOrder Description Priority Entered Acknowledged InitialedDIAGNOSTIC STUDY ORDERSOrder Description Priority Entered Acknowledged InitialedMEDICATION/IV/DRIP/FLUID ORDERSOrder Description Priority Entered Acknowledged InitialedAtivan PO 0.5 mg 14:18 06/21/2020 14:24 Jessica Ramirez(NOW) Nick Escalante R.N. PA;GENERAL ORDERSOrder Description Priority Entered Acknowledged Initialed[Electronically signed by Jessica Ramirez R.N. (14:26 06/21/2020)][Electronically signed by Nick Escalante (19:01 06/22/2020)][Electronically locked by Jessica Ramirez R.N. (14:26 06/21/2020)] Name Value Range Interpretation Code Description Data Danelle rce(s) Supporting Document(s) ID Date Data Source [id number] 06/21/2020 01:39:00 PM [facility] 1 Medication Reconciliation Report [facility] Emergency Department [address] [place] [address] Phone #: ext- [phone] 06/21/2020 13:31 Patient: SAV MANN Sex: F : 1985 Age: 35yWeight: 96.1 kgHeight/Length: 69 in.BMI: 31.3ALLERGIES: CodieneThe patient's Home Medications are listed below:CONTINUE TAKING [...] Dispense 30tablet. Refills: 0. Substitution permitted.Pharmacy - [facility] [id number] [id number] [facility] [address] ; [place] [address]. Phone: . -- RUDOLPH Hull Name Value Range Interpretation Code Description Data Danelle rce(s) Supporting Document(s) ID Date Data Source [id number] 06/21/2020 01:39:00 PM [facility] 1 Medication Administration Record [facility] Emergency Department [address] [place] [address] Phone #: ext- [phone] 06/21/2020 13:31 Patient: SAV MANN Sex: F : 1985 Age: 35yWeight: 96.1 kgHeight/Length: 69 inBMI: 31.3ALLERGIES: Codiene Date/Time Medication Administered Medication OrderedGiven ATIVAN [PO] (LORAZEPAM) Ativan PO 0.5 mg (NOW)14:24 06/21/2020 Dose: 0.5 mg Tablets Jessica Menendez R.N. Name Value Range Interpretation Code Description Data Danelle rce(s) Supporting Document(s) ID Date Data Source [id number] 06/21/2020 01:39:00 PM EST [facility] 1 General Instructions [facility] Emergency Department [address] [place] [address] Phone #: ext- [phone] 06/21/2020 13:31 Patient: [...] Dispense 30tablet. Refills: 0. Substitution permitted.Pharmacy - [facility] [phone] - [id number] [facility] [address] ; [place] [address]. .Follow-up:Follow up with your doctor as scheduled. [...] appointment for follow-up care. 2 General Instructions [facility] Emergency Department [address] [place] [address] Phone #: ext- [phone] 06/21/2020 13:31 Patient: [...] day to give emergency care. But this [facility] does not give phone advice formedical conditions. If you need advice for a condition that can't wait to be seen by your doctor, youwill need to come back to this facility in person. [employer]. [address] [place] [address]. All rights reserved. This information is not intended as asubstitute for professional medical care. Always follow your healthcare professional's instructions. You have been given the following additional information: Medical Screening Exam, Nonemergent 3 General Instructions [facility] Emergency Department [address] [place] [address] Phone #: ext- [phone] 06/21/2020 13:31 Patient: SAV MANN Sex: F : 1985 Age: 35y(Electronically signed by RUDOLPH Hull 06/22/2020 19:01) Name Value Range Interpretation Code Description Data Danelle rce(s) Supporting Document(s) ID Date Data Source [id number] 06/21/2020 01:39:00 PM EST [facility] 1 Clinical Report - Nurses [facility] Emergency Department [address] [place] [address] Phone #: ext- [phone] 06/21/2020 13:31 Patient: SAV MANN Sex: F : 1985 Age: 35yTRIAGEArrived by private vehicle. Historian: patient. ( [facility] pt was denied [facility] ref[facility] 2 days ago but sertralinewas refilled.).Triage time: 13:36 06/21/2020. Acuity: LEVEL 5.Chief Complaint: (pt reports she had a panic attack at work. pt was seen at [facility] day before yesterday formed refill and given PSA consult to see a PCM sooner than Aug. Pt reports that she was given sertraline [facility]. Pt has appt start of July. Pt establishing with intake at [facility].).Alert.This started today. --13:42 06/21/20 Cira Huffman R.N.13:36 [...] harming or 2 Clinical Report - Nurses [facility] Emergency Department [address] [place] [address] Phone #: cyt- [phone] 06/21/2020 13:31 Patient: SAV MANN Sex: F [...] Patient verbalized understanding. Written instructions provided in Palauan. The patient was discharged home and accompanied by garment sorter. She left ambulatory and via private vehicle. Pediatrician/Medical Doctor driving. --14:25 3 Clinical Report - Nurses [facility] Emergency Department [address] [place] [address] Phone #: ext- [phone] 06/21/2020 13:31 Patient: SAV MANN Sex: F : 1985 Age: 35y 06/21/20 [...] rce(s) Supporting Document(s) ID Date Data Source [id number] 06/21/2020 01:39:00 PM EST [facility] 1 Clinical Report - Physicians/Mid Levels [facility] Emergency Department [address] [place] [address] Phone #: ext- [phone] 06/21/2020 13:31 Patient: [...] refill. pt was denied clonazapam refill at [facility] 2 days ago but sertraline was [...] observation. (Discussed need for follow up with [facility] Clinical Report - Physicians/Mid Levels [facility] Emergency Department [address] [place] [address] Phone #: ext- [phone] 06/21/2020 13:31 Patient: SAV MANN Sex: F : 1985 Age: 35y and [...] tablet. Refills: 0. Substitution permitted. Pharmacy - [facility] [address] [phone] [facility] [address] ; [place] [address]. . Follow-up: Follow up with your doctor as scheduled. Reason for referral: evaluation and treatment. Summary of care provided to patient. Understanding of the discharge instructions verbalized by patient.(Electronically signed by RUDOLPH Hull 06/22/2020 19:01) 3Clinical Report - Physicians/Mid Levels [facility] Emergency Department [address] [place] [address] Phone #: ext- [phone] 06/21/2020 13:31 Patient: SAV MANN Sex: F : 1985 Age: 35y Name Value Range Interpretation Code Description Data Danelle rce(s) Supporting Document(s) ID Date Data Source [id number] 03/22/2020 06:55:00 PM EDT [facility] Patient: SAV MANN Observation Rep ort - Physicians/Mid Levels . [facility].VisitID: [id number] [place] [address] [phone], FRegistration Date/Time: 03/22/2020 12:00 Weight:97.5 kg (S). [...] rce(s) Supporting Document(s) ID Date Data Source [id number] 03/22/2020 04:37:00 PM EDT [facility] TSYSORDER [id number] Name Value Range Interpretation Code Description Data Danelle rce(s) Supporting Document(s) TROPONIN I < 0.017 ng/mL 0.0-0.056 [facility] ID Date Data Source [id number] 03/22/2020 02:17:[address] DATE OF EXAMINATION: 03/22/2020 12:44 EDT [...] rce(s) Supporting Document(s) ID Date Data Source [id number] 03/22/2020 01:45:00 PM EDT [facility] TSYSORDER [id number] Name Value Range Interpretation Code Description Data Danelle rce(s) Supporting Document(s) LACTIC ACID 0.9 mmol/L 0.4-2.0 [facility] ID Date Data Source [id number] 03/22/2020 01:45:[address] [facility] l Name Value Range Interpretation Code Description Data Danelle rce(s) Supporting Document(s) TROPONIN I < 0.017 ng/mL 0.0-0.056 [facility] ID Date Data Source [id number] 03/22/2020 01:45:[address] [facility] l Name Value Range Interpretation Code Description Data Danelle rce(s) Supporting Document(s) GLUCOSE 89 mg/dL 74-106 [facility] BLOOD UREA NITROGEN 10 mg/dL 7-18 [facility] CREATININE 0.9 mg/dL 0.6-1.0 [facility] SODIUM 139 mmol/L 136-145 [facility] POTASSIUM 3.7 mmol/L 3.5-5.1 [facility] CHLORIDE 101 mmol/L 98-107 [facility] CO2 29 mmol/L 21-32 [facility] CALCIUM 8.5 mg/dL 8.5-10.1 [facility] ANION GAP 9.0 mmol/L 5-12 [facility] GLOMERULAR FILTRATION RATE 71 mL/min [facility] GFR IS CALCULATED IN mL/min/1.73m2 BAR L FUNCTION: >90MILDLY DECREASED: 60-89MILDY TO MODERATELY DECREASED: 45-59 MODERATELY TO SEVERELY DECREASED: 30-44SEVERELY DECREASED: 15-29RENAL FAILURE: <15 AST 15 U/L 15-37 [facility] ALT 23 U/L 12-78 [facility] ALKALINE PHOSPHATASE 87 U/L 46-116 [facility] pital TOTAL BILIRUBIN 0.2 mg/dL 0.2-1.0 [facility] TOTAL PROTEIN 7.7 g/dl 6.4-8.2 [facility] ALBUMIN 4.2 gm/dL 3.4-5.0 [facility] ID Date Data Source [id number] 03/22/2020 01:39:[address] [facility] l TSYSORDER [id number] Name Value Range Interpretation Code Description Data Danelle rce(s) Supporting Document(s) URINE RBC TNTC /hpf 0-3 H [facility] URINE WBC 0-2 /hpf 0-5 H [facility] URINE BACTERIA TRACE NONE SEEN H [facility] ID Date Data Source [id number] 03/22/2020 01:33:[address] [facility] TSYSORDER [id number] Name Value Range Interpretation Code Description Data Danelle rce(s) Supporting Document(s) URINE COLOR. [facility] URINE APPEARANCE CLEAR [facility] SPECIFIC GRAVITY,URINE 1.020 1.001-1.035 [facility] URINE LEUKOCYTE ESTERASE NEGATIVE NEGATIVE [facility] URINE NITRATE NEGATIVE NEGATIVE [facility] PH,URINE 7.0 5.0-9.0 [facility] URINE PROTEIN NEGATIVE mg/[facility]GATIVE [facility] URINE GLUCOSE (UA) NEGATIVE mg/dL NEGATIVE [facility] URINE KETONE NEGATIVE mg/dL NEGATIVE [facility] URINE UROBILINOGEN NORMAL(0.2-1) mg/dL 0-1 R [facility] URINE BILIRUBIN NEGATIVE NEGATIVE [facility] URINE BLOOD 3+(LARGE) NEGATIVE H [facility] ID Date Data Source [id number] 03/22/2020 01:34:00 PM EDT [facility] TSYSORDER [id number] Name Value Range Interpretation Code Description Data Danelle rce(s) Supporting Document(s) HCG,SERUM NEGATIVE NEGATIVE [facility] False negative results may occur when th e levels of hCG arebelow the sensitivity level of the test. If isstill suspected, a first morning urine specimen should becollected 48hrs later.This test has a sensitivity of 10mIU/mL in serum oih68kZM/mL in urine. ID Date Data Source [id number] 03/22/2020 01:21:00 PM EDT [facility] TSYSORDER [id number] Name Value Range Interpretation Code Description Data Danelle rce(s) Supporting Document(s) WHITE BLOOD COUNT 9.5 K/mm3 4.0-10.0 [facility] RED BLOOD COUNT 4.51 M/mm3 4.00-5.50 [facility] HEMOGLOBIN 12.2 gm/dL 12.0-16.0 [facility] HEMATOCRIT 37.1 % 36.0-48.8 [facility] MEAN CELL VOLUME 82.3 fl 80-96 [facility] MEAN CORPUSCULAR HEMOGLOBIN 27.1 pg 27.0-31.0 [facility] MEAN CORPUSCULAR HGB CONC 32.9 g/dl 32.0-36.0 [facility] RED CELL DISTRIBUTION WIDTH 14.8 % 10.0-14.[address] [facility] PLATELET COUNT 303 K/mm3 172-450 [facility] MEAN PLATELET VOLUME 10.7 fl 9.0-13.0 [facility] pital GRAN % 68.6 % 50-80.0 [facility] IG% 0.1 % 0.0-0.2 [facility] LYMPH % 22.3 % 25.0-50.0 L [facility] MONO % 6.6 % 2.0-10.0 [facility] EOS % 1.9 % 0-5.0 [facility] BASO % 0.5 % 0.0-2.0 [facility] GRAN # 6.5 K/mm3 2.0-8.00 [facility] IG# 0.0 K/mm3 0.0-0.2 [facility] LYMPH # 2.1 K/mm3 1.0-5.0 [facility] MONO # 0.6 K/mm3 0.10-1.20 [facility] EOS # 0.2 K/mm3 0.0-0.5 [facility] BASO # 0.1 K/mm3 0.0-0.2 [facility] Procedure
--- OUTSIDE RECORDS SUMMARY | 2020-08-26 17:42 | CCD ---
Author Author [facility] Organization [facility] Address Unknown Phone Unavailable Care Team Providers Care Imaging Specialist Name Role Phone PETROFF, RIVAS PA Unavailable [...] is protected by Article 27-F of the [facility] Public Health law. If you continue you may have access to information: Regarding HIV / AIDS; Provided by facilities licensed or operated by the [facility] Office of Mental Health; or Provided by the [facility] Office for People With Developmental Disabilities. If such information is present, then the following [facility] mandated warning applies: This information has [...] law may result in a fine or long-term sentence or both. A general authorization for the release of medical or other information is NOT sufficient authorization for further disc losure. Encounters Encounter Providers Location Date Indications Data Source(s ) Outpatient 08/23/2020 03:08:53 PM EST [facility] ([facility]) Emergency Attender: JARRETT HODGESConsultant: STAFF N ON 06/21/2020 01:39:00 PM EST - 06/21/2020 02:26:00 PM [facility] Patient discharged. Emergency Attender: RIVAS GALDAMEZ EMERGENCY ROOM-ER 03/05 01:19:00 PM EDT - 03/22/2020 05:00:00 PM EDT [facility] Patient discharged. 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 [id number] Self [id number] [facility] [id number] SP [id number] UN COMMUNITY PLAN XIX [id number] 18 [id number] SELF PAY ONLY [id number] SP [id number] SELF PAY [id number] S [id number] O UNAVAILABLE UNAVAILA BLE EMEDNY [id number] SP [id number] Problems, Conditions, and Diagnoses Code Display Name Description Problem Type Effective Dates Data Source(s) Z760 Encounter for issue of repeat prescripti on Encounter for issue of repeat prescription Diagnosis 06/21/2020 01:39:00 PM [facility] F419 Anxiety disorder, unspecified Anxiety disorder, unspec ified Diagnosis 06/21/2020 01:39:00 PM [facility] Z79.899 Other prison (current) drug therapy O THER DISPATCHER [place] (CURRENT) DRUG THERAPY Diagnosis 03/22/2020 01:19:00 PM EDT [facility] F17.210 Nicotine dependence, cigarettes, uncompl icated NICOTINE DEPENDENCE, CIGARETTES, UNCOMPLICATED Diagnosis 03/22/2020 01:19:00 PM EDT [facility] R55 Syncope and collapse SYNCOPE AND COLLAPSE Diagnosis 03/22/2020 01:19:00 PM EDT [facility] Results ID Date Data Source [id number] 06/21/2020 01:39:00 PM [facility] 1 OrderSheet [facility] Emergency Department [address] [place] [address] Phone #: ext- [phone] 06/21/2020 13:31 Patient: [...] rce(s) Supporting Document(s) ID Date Data Source [id number] 06/21/2020 01:39:00 PM [facility] 1 Medication Reconciliation Report [facility] Emergency Department [address] [place] [address] Phone #: ext- [phone] 06/21/2020 13:31 Patient: [...] Dispense 30tablet. Refills: 0. Substitution permitted.Pharmacy - [facility] [phone] - [phone] [address] ; [place] [address]. Phone: . -- RUDOLPH Hull Name Value Range Interpretation Code Description Data Danelle rce(s) Supporting Document(s) ID Date Data Source [id number] 06/21/2020 01:39:00 PM [facility] 1 Medication Administration Record [facility] Emergency Department [address] [place] [address] Phone #: ext- [phone] 06/21/2020 13:31 Patient: SAV MANN Sex: F : 1985 Age: 35yWeight: 96.1 kgHeight/Length: 69 inBMI: 31.3ALLERGIES: Codiene Date/Time Medication Administered Medication OrderedGiven ATIVAN [PO] (LORAZEPAM) Ativan PO 0.5 mg (NOW)14:24 06/21/2020 Dose: 0.5 mg Tablets Jessica Menendez R.N. Name Value Range Interpretation Code Description Data Danelle rce(s) Supporting Document(s) ID Date Data Source [id number] 06/21/2020 01:39:00 PM EST [facility] 1 General Instructions [facility] Emergency Department [address] [place] [address] Phone #: ext- [phone] 06/21/2020 13:31 Patient: [...] Dispense 30tablet. Refills: 0. Substitution permitted.Pharmacy - [facility] [phone] - [phone] ; [place] [address]. .Follow-up:Follow up with your doctor as scheduled. [...] appointment for follow-up care. 2 General Instructions [facility] Emergency Department [address] [place] [address] Phone #: ext- [phone] 06/21/2020 13:31 Patient: [...] day to give emergency care. But this [facility] does not give phone advice formedical conditions. If you need advice for a condition that can't wait to be seen by your doctor, youwill need to come back to this facility in person. [employer]. [address] [place] [address]. All rights reserved. This information is not intended as asubstitute for professional medical care. Always follow your healthcare professional's instructions. You have been given the following additional information: Medical Screening Exam, Nonemergent 3 General Instructions [facility] Emergency Department [address] [place] [address] Phone #: ext- [phone] 06/21/2020 13:31 Patient: SAV MANN Sex: F : 1985 Age: 35y(Electronically signed by RUDOLPH Hull 06/22/2020 19:01) Name Value Range Interpretation Code Description Data Danelle rce(s) Supporting Document(s) ID Date Data Source [id number] 06/21/2020 01:39:00 PM EST [facility] 1 Clinical Report - Nurses [facility] Emergency Department [address] [place] [address] Phone #: ext- [phone] 06/21/2020 13:31 Patient: SAV MANN Sex: F : 1985 Age: 35yTRIAGEArrived by private vehicle. Historian: patient. ( pt [facility] pt was denied clonazapam refill at [facility] 2 days ago but sertralinewas refilled.).Triage time: 13:36 06/21/2020. Acuity: LEVEL 5.Chief Complaint: (pt reports she had a panic attack at work. pt was seen at [facility] day before yesterday formed refill and given PSA consult to see a PCM sooner than Aug. Pt reports that she was given sertraline [facility]. Pt has appt start of July. Pt establishing with intake at [facility].).Alert.This started today. --13:42 06/21/20 Cira Huffman R.N.13:36 [...] harming or 2 Clinical Report - Nurses [facility] Emergency Department [address] [place] [address] Phone #: [phone]- [phone] 06/21/2020 13:31 Patient: SAV MANN Sex: F [...] Patient verbalized understanding. Written instructions provided in Maltese. The patient was discharged home and accompanied by craft artist. She left ambulatory and via private vehicle. Angular Developer driving. --14:25 3 Clinical Report - Nurses [facility] Emergency Department [address] [place] [address] Phone #: ext- [phone] 06/21/2020 13:31 Patient: [...] rce(s) Supporting Document(s) ID Date Data Source [id number] 06/21/2020 01:39:00 PM EST [facility] 1 Clinical Report - Physicians/Mid Levels [facility] Emergency Department [address] [place] [address] Phone #: ext- [phone] 06/21/2020 13:31 Patient: [...] refill. pt was denied clonazapam refill at [facility] 2 days ago but sertraline [...] observation. (Discussed need for follow up with [facility] Clinical Report - Physicians/Mid Levels [facility] Emergency Department [address] [place] [address] Phone #: ext- [phone] 06/21/2020 13:31 Patient: [...] tablet. Refills: 0. Substitution permitted. Pharmacy - [facility] [phone] ; [place] [address]. . Follow-up: Follow up with your doctor as scheduled. Reason for referral: evaluation and treatment. Summary of care provided to patient. Understanding of the discharge instructions verbalized by patient.(Electronically signed by RUDOLPH Hull 06/22/2020 19:01) 3Clinical Report - Physicians/Mid Levels [facility] Emergency Department [address] [place] [address] Phone #: ext- [phone] 06/21/2020 13:31 Patient: SAV MANN Sex: F : 1985 Age: 35y Name Value Range Interpretation Code Description Data Danelle rce(s) Supporting Document(s) ID Date Data Source [id number] 03/22/2020 06:55:00 PM EDT [facility] Patient: SAV MANN Observation Rep ort - Physicians/Mid Levels [facility].VisitID: [id number] [place] [address] [phone], FRegistration Date/Time: 03/22/2020 12:00 Weight:97.5 kg (S). [...] rce(s) Supporting Document(s) ID Date Data Source [id number] 03/22/2020 04:37:00 PM EDT [facility] TSYSORDER [id number] Name Value Range Interpretation Code Description Data Danelle rce(s) Supporting Document(s) TROPONIN I < 0.017 ng/mL 0.0-0.056 [facility] ID Date Data Source [id number] 03/22/2020 02:17:00 PM EDT [facility] DATE OF EXAMINATION: 03/22/2020 12:44 [...] rce(s) Supporting Document(s) ID Date Data Source [id number] 03/22/2020 01:45:00 PM EDT [facility] TSYSORDER [id number] Name Value Range Interpretation Code Description Data Danelle rce(s) Supporting Document(s) LACTIC ACID 0.9 mmol/L 0.4-2.0 [facility] ID Date Data Source [id number] 03/22/2020 01:45:00 PM EDT [facility] Name Value Range Interpretation Code Description Data Danelle rce(s) Supporting Document(s) TROPONIN I < 0.017 ng/mL 0.0-0.056 [facility] ID Date Data Source [id number] 03/22/2020 01:45:00 PM EDT [facility] Name Value Range Interpretation Code Description Data Danelle rce(s) Supporting Document(s) GLUCOSE 89 mg/dL 74-106 [facility] BLOOD UREA NITROGEN 10 mg/dL 7-18 [facility] CREATININE 0.9 mg/dL 0.6-1.0 [facility] SODIUM 139 mmol/L 136-145 [facility] POTASSIUM 3.7 mmol/L 3.5-5.1 [facility] CHLORIDE 101 mmol/L 98-107 [facility] CO2 29 mmol/L 21-32 [facility] CALCIUM 8.5 mg/dL 8.5-10.1 [facility] ANION GAP 9.0 mmol/L 5-12 [facility] GLOMERULAR FILTRATION RATE 71 mL/min [facility] GFR IS CALCULATED IN mL/min/1.73m2 BAR L FUNCTION: >90MILDLY DECREASED: 60-89MILDY TO MODERATELY DECREASED: 45-59 MODERATELY TO SEVERELY DECREASED: 30-44SEVERELY DECREASED: 15-29RENAL FAILURE: <15 AST 15 U/L 15-37 [facility] ALT 23 U/L 12-78 [facility] ALKALINE PHOSPHATASE 87 U/L 46-116 [facility] pital TOTAL BILIRUBIN 0.2 mg/dL 0.2-1.0 [facility] TOTAL PROTEIN 7.7 g/dl 6.4-8.2 [facility] ALBUMIN 4.2 gm/dL 3.4-5.0 [facility] ID Date Data Source [id number] 03/22/2020 01:39:00 PM EDT [facility] TSYSORDER [id number] Name Value Range Interpretation Code Description Data Danelle rce(s) Supporting Document(s) URINE RBC TNTC /hpf 0-3 H [facility] URINE WBC 0-2 /hpf 0-5 H [facility] URINE BACTERIA TRACE NONE SEEN H [facility] ID Date Data Source [id number] 03/22/2020 01:33:00 PM EDT [facility] TSYSORDER [id number] Name Value Range Interpretation Code Description Data Danelle rce(s) Supporting Document(s) URINE COLOR. [facility] URINE APPEARANCE CLEAR [facility] SPECIFIC GRAVITY,URINE 1.020 1.001-1.035 [facility] URINE LEUKOCYTE ESTERASE NEGATIVE NEGATIVE [facility] URINE NITRATE NEGATIVE NEGATIVE [facility] PH,URINE 7.0 5.0-9.0 [facility] URINE PROTEIN NEGATIVE mg/dL NEGATIVE [facility] URINE GLUCOSE (UA) NEGATIVE mg/dL NEGATIVE [facility] URINE KETONE NEGATIVE mg/dL NEGATIVE [facility] URINE UROBILINOGEN NORMAL(0.2-1) mg/dL 0-1 R [facility] URINE BILIRUBIN NEGATIVE NEGATIVE [facility] URINE BLOOD 3+(LARGE) NEGATIVE H [facility] ID Date Data Source [id number] 03/22/2020 01:34:00 PM EDT [facility] TSYSORDER [id number] Name Value Range Interpretation Code Description Data Dnaelle rce(s) Supporting Document(s) HCG,SERUM NEGATIVE NEGATIVE [facility] False negative results may occur when th e levels of hCG arebelow the sensitivity level of the test. If isstill suspected, a first morning urine specimen should becollected 48hrs later.This test has a sensitivity of 10mIU/mL in serum dby19rWK/mL in urine. ID Date Data Source [id number] 03/22/2020 01:21:00 PM EDT [facility] TSYSORDER [id number] Name Value Range Interpretation Code Description Data Danelle rce(s) Supporting Document(s) WHITE BLOOD COUNT 9.5 K/mm3 4.0-10.0 [facility] RED BLOOD COUNT 4.51 M/mm3 4.00-5.50 [facility] HEMOGLOBIN 12.2 gm/dL 12.0-16.0 [facility] HEMATOCRIT 37.1 % 36.0-48.8 [facility] MEAN CELL VOLUME 82.3 fl 80-96 [facility] MEAN CORPUSCULAR HEMOGLOBIN 27.1 pg 27.0-31.0 [facility] MEAN CORPUSCULAR HGB CONC 32.9 g/dl 32.0-36.0 [facility] RED CELL DISTRIBUTION WIDTH 14.8 % 10.0-14.5 H [facility] PLATELET COUNT 303 K/mm3 172-450 [facility] MEAN PLATELET VOLUME 10.7 fl 9.0-13.0 [facility] pital GRAN % 68.6 % 50-80.0 [facility] IG% 0.1 % 0.0-0.2 [facility] LYMPH % 22.3 % 25.0-50.0 L [facility] MONO % 6.6 % 2.0-10.0 [facility] EOS % 1.9 % 0-5.0 [facility] BASO % 0.5 % 0.0-2.0 [facility] GRAN # 6.5 K/mm3 2.0-8.00 [facility] IG# 0.0 K/mm3 0.0-0.2 [facility] LYMPH # 2.1 K/mm3 1.0-5.0 [facility] MONO # 0.6 K/mm3 0.10-1.20 [facility] EOS # 0.2 K/mm3 0.0-0.5 [facility] BASO # 0.1 K/mm3 0.0-0.2 [facility] Procedure
== END 2020-08-26 17:38 | disposition left against medical advice (07) ==
LOC: M ED 16:22
DX: Z53.21 Procedure and treatment not carried out due to patient leaving prior to being seen by health care provider (principal)

== ENCOUNTER → 2020-12-13 | Outpatient (CLI) | payer OTHER ==
--- NOTE | 2020-12-15 12:12 | REP ---
INDICATION: RT LEG PAIN COMPARISON: None. TECHNIQUE: Park scale and color Doppler evaluation using linear high frequency transducer. FINDINGS: Ultrasound examination of the right lower extremity deep venous structures from the common femoral vein through the calf/ankle to include the peroneal, and tibial veins demonstrates normal compressibility flow and wave patterns in response to respiration and augmentation. There is no evidence for deep venous thrombosis. Contralateral CFV is patent and normal. IMPRESSION: No evidence for deep venous thrombosis. <Electronically signed by Behzad Henry > 12/15/20 4501
== END ==
LOC: M RAD 13:56
PROVIDERS: ATTEND Nurse Practitioner Family
DX: M79.604 Pain in right leg (principal)

== ENCOUNTER → 2021-03-12 | Outpatient (REF) | payer OTHER ==
[2021-03-13 12:49] LABS: GC DNA AMPLIFICATION NEGATIVE (NEGATIVE)
== END ==
LOC: M WUC 09:49
PROVIDERS: ATTEND Physician Assistant
DX: R30.0 Dysuria (principal)

== ENCOUNTER → 2021-03-13 | Outpatient (CLI) | payer OTHER, MEDICAID | LOC: M WHC 13:09 | PROVIDERS: ATTEND Advanced Practice Midwife | DX: Z53.9 Procedure and treatment not carried out, unspecified reason (principal) ==

== ENCOUNTER → 2021-03-14 | Outpatient (CLI) | payer OTHER | LOC: M LABSMTC 10:58 | PROVIDERS: ATTEND Pediatrics | DX: Z20.822 Contact with and (suspected) exposure to COVID-19 (principal) ==

== ENCOUNTER → 2021-04-18 | Outpatient (REF) | payer OTHER | LOC: M SFHCWAGY 09:50 | PROVIDERS: ATTEND Advanced Practice Midwife | DX: Z12.4 Encounter for screening for malignant neoplasm of cervix (principal); N88.8 Other specified noninflammatory disorders of cervix uteri ==

== ENCOUNTER 2021-04-21 21:18 | Emergency (ER) | payer MEDICAID, OTHER ==
[~2021-04-21] VITALS: Ht 175.3 cm; Wt 96.6 kg
[2021-04-21 21:18] VITALS: BP 136/81
--- OUTSIDE RECORDS SUMMARY | 2021-04-21 21:24 | CCD | Continuity of Care Document ---
Author Author [facility] [place] Organization Unknown Address [address] [place] [address] Phone [phone] Care Team Providers Care Database Specialist Name Role Phone [facility] AUTM Problems Description No Information Available Social History Type Date Description Comments Sex Unknown ETOH Use Occasionally consumes alcohol Tobacco Use Start: Unknown The patient has never vaped Tobacco Use Start: Unknown Patient is a current smoker, smo kes every day 10-12 a day Smoking Status Reviewed: 04/01/21 Patient is a current smoker, smokes every day 10-12 a day Allergies, Adverse Reactions, Alerts Active Allergies Criticality Reaction | Severity Comments Date Codeine Unable to assess criticality 03/12/2021 Inactive Allergies NKDA Unable to assess criticality 03/12/2021 Medications Active Medications SIG Qnty Indications Ordering Provide r Date Advil prn Unknown Zoloft Unknown Clonazepam 0.5mg bid Unknown Mucinex last dose this Am Unknown /0 000 History Medications Diflucan 150mg Tablets 1 tab by mouth every day x 1 day and repeat in 1 week if still occuring 2tabs Jerry Reynaga JR., M.D. 03/12/2021 - 03/31/2021 Metronidazole 0.75% Gel 1 applicator daily x 7 days 70gm Jerry Reynaga JR., M.D. 02/2021 - 03/31/2021 Immunizations Description No Information Available Vital Signs Date Vital Result Comment 04/01/2021 7:01pm BP Systolic 116 mmHg BP Diastolic 81 mmHg Heart Rate 106 /min Respiratory Rate 16 /min O2 % BldC Oximetry 100 % Body Temperature 98.0 F Weight 210.00 lb Height 69 inches 5'9" BMI (Body Mass Index) 31.0 kg/m2 Pain Level 0 03/12/2021 7:39pm BP Systolic 127 mmHg BP Diastolic 87 mmHg Heart Rate 86 /min Respiratory Rate 14 /min O2 % BldC Oximetry 99 % Body Temperature 97.8 F Weight 214.00 lb Height 69 inches 5'9" BMI (Body Mass Index) 31.6 kg/m2 Pain Level 4 Results Test Acquired Date Facility Test Result H/L Range Note Chlamydia, GC & Trich Amp 03/12/2021 [facility] [address] [place] [address] [phone] Chlamydia Dna Amplification NEGATIVE Normal Nega tive 1, 2 GC Dna Amplification NEGATIVE Normal Negative 3 Trichomonas vaginalis (Amp) NOT DETECTED Normal Negative 4 Laboratory test finding 03/12/[address] [address] [phone] Urine Culture FULL REPORT IN L <SEE NOTE> Normal 5 1 Rx Diflucan/Metronidazole 2 A negative test result does not exclude the possibility of infection because test results may be affected by improper specimen collection, technical error, specimen mix-up, concurrent antibiotic therapy, or the number of organisms in the specimen which may be below the sensitivity of the test. 3 A negative test result does not exclude the possibility of infection because test results may be affected by improper specimen collection, technical error, specimen mix-up, concurrent antibiotic therapy, or the number of organisms in the specimen which may be below the sensitivity of the test. 4 A negative test result does not exclude the possibility of infection because test results may be affected by improper specimen collection, technical error, sample mix-up, or because the number of organisms in the sample is below the limit of detection of the test. 5 FULL REPORT IN LAB NOTES (eC W and [facility]). NO GROWTH Procedures Date Code Description Status 04/01/2021 53198 Office/Outpatient Established Lo w MDM 20-29 Min Completed 03/12/2021 99704 Office/Outpatient New Low MDM 30 -44 Minutes Completed Medical Devices Description No Information Available Encounters Type Date Location Provider Dx Diagnosis Office Visit 04/01/2021 5:20p Main Office RUDOLPH Rodriguez J06 .9 Acute upper respiratory infection, unspecified Office Visit 03/12/2021 6:35p Main Office RUDOLPH Philip R3 0.0 Dysuria N76.0 Acute vaginitis Assessments Date Code Description Provider 04/01/2021 J06.9 Acute upper respiratory infectio n, unspecified RUDOLPH Rodriguez 03/12/2021 R30.0 Dysuria RUDOLPH Harris 03/12/2021 N76.0 Acute vaginitis RUDOLPH Harris Plan of Treatment 04/01/2021 - RUDOLPH Rodriguez* J06.9 Acute upper respiratory infection, unspecified* Comments:* Rest/fluids/tylenol/motrin/time Functional Status Description No Information Available Mental Status Description No Information Available Referrals Description No Information Available
--- OUTSIDE RECORDS SUMMARY | 2021-04-21 21:24 | CCD ---
Author Author [facility] Organization [facility] Address Unknown Phone Unavailable Care Team Providers Care Heavy Repairer Name Role Phone Nany Waldrop Unavailable PROBLEMS Type Condition ICD9-CM Code [id number] Code Onset Dates Condition S tatus W/U Status Risk SNOMED Code Notes Problem Nicotine use disorder F17.200 Active confirmed 67146647 Problem NIKI (generalized anxiety disorder) F41.1 Activ e confirmed 53015714 Problem Menorrhagia with regular cycle N92.0 Active confir med 166022311 ALLERGIES Allergen (clinical drug ingredient) Drug/Non Drug Allergy do cumented on EMR Reaction Allergy Type Onset Date Status codeine Codeine Sulfate([facility] Code:[address]-87) jaw locks up Drug Allergy Active ENCOUNTERS from 1985 to 2021-03-21 Encounter Location Date Provider Diagnosis [address] [phone] [place] [address] Mar, Nany Waldrop IMMUNIZATIONS No Information SOCIAL HISTORY Tobacco Use: Social History Observation Description Date Details (start date - stop date) Current Smoker Sex Assigned At : Social History Observation Description Sex Assigned At Unknown Education: Question Answer Notes Level of Education: Finished College Language: Question Answer Notes Languages spoken: Irish Latter-Day: Question Answer Notes Latter-Day 33 None Domestic Violence: Question Answer Notes Status: No history of abuse Sexual Hx: Question Answer Notes Had sex in the last 12 months (vaginal, oral, or anal)? Yes Have you ever had an STD? No with Men only Use protection? Yes How often? All of the time Alcohol Screening: Question Answer Notes Did you have a drink containing alcohol in the past year? Ye s Points 2 Interpretation Negative How often did you have six or more drinks on one occas ion in the past year? Never (0 points) How many drinks did you have on a typica l day when you were drinking in the past year? 1 or 2 (0 points) How often did you have a drink containing alcohol in t he past year? Two to four times a month (2 points) Tobacco Use: Question Answer Notes Are you a: current smoker REASON FOR REFERRAL No Information VITAL SIGNS No information MEDICATIONS Medication SIG (Take, Route, Frequency, Duration) Notes Start Da te End Date Status Zoloft 25 MG 1 tablet Orally Once a day Active Benzoyl Peroxide Cleanser 6 % 1 application Externally Once a day for 10 day(s) Feb, Active clonazePAM 0.5 MG 1 tablet at bedtime Orally Once a day Active Zoloft 50 MG 1 tablet Orally Once a day Active Cephalexin 500 MG 1 capsule Orally bid for 7 day(s) Feb Active PROCEDURES No Information RESULTS No Results REASON FOR VISIT upset about referral MEDICAL (GENERAL) HISTORY Type Description Date Medical History Anxiety disorder Medical History Panic attacks Surgical History C section Surgical History gall bladder removal 2015 Surgical History appendectomy 2019 Surgical History tubal ligation 2015 Surgical History ear tubes Hospitalization History childbirth Hospitalization History surgery Goals Section No Information Health Concerns No Information MEDICAL EQUIPMENT No Information MENTAL STATUS No Information FUNCTIONAL STATUS No Information ASSESSMENTS No Information PLAN OF TREATMENT Medication Medication Name Sig Start Date Stop Date Benzoyl Peroxide Cleanser 6 % 1 application Externally Once a day for 10 day(s) Feb, Cephalexin 500 MG 1 capsule Orally bid for 7 day(s) Feb, Next Appt Details Provider Name:Racheal Rivero, 2021-04-18 03:20:00 PM, [address] [place] [address], , [place], [address], Provider Name:Nany Waldrop, 2020-07 09:30:00 AM, [address] [place] [address], , [place], [address], Insurance Providers Payer Name Payer Address Payer Phone Insured Name Patient Relati onship to Insured Coverage Start Date Coverage End Date [employer] COMM[employer] PLAN [facility] [address] [facility] [address] SAV MANN self
--- OUTSIDE RECORDS SUMMARY | 2021-04-21 21:24 | CCD ---
Author Author [facility] Organization [facility] Address Unknown Phone Unavailable Care Team Providers Care Pipe Foreman Name Role Phone Nany Waldrop Unavailable PROBLEMS Type Condition ICD9-CM Code [id number] Code Onset Dates Condition S tatus W/U Status Risk SNOMED Code Notes Problem Nicotine use disorder F17.200 Active confirmed 25461371 Problem NIKI (generalized anxiety disorder) F41.1 Activ e confirmed 18876973 Problem Menorrhagia with regular cycle N92.0 Active confir med 079464719 ALLERGIES Allergen (clinical drug ingredient) Drug/Non Drug Allergy do cumented on EMR Reaction Allergy Type Onset Date Status codeine Codeine Sulfate([facility] Code:[address]-47) jaw locks up Drug Allergy Active ENCOUNTERS from 1985 to 2021-02-22 Encounter Location Date Provider Diagnosis [address] [phone] [place] [address] Feb, Nany Crewsrenaemelvin Back pain, lumbosacral M54.5 IMMUNIZATIONS No Information SOCIAL HISTORY Tobacco Use: Social History Observation Description Date Details (start date - stop date) Current Smoker Sex Assigned At : Social History Observation Description Sex Assigned At Unknown Education: Question Answer Notes Level of Education: Finished College Language: Question Answer Notes Languages spoken: Canadian Buddhist: Question Answer Notes Buddhist 33 None Domestic Violence: Question Answer Notes [...] you a: current smoker REASON FOR REFERRAL from 1985 to 2021-02-[address] Rajni Rod |continuity of care Diagnosis 1 Back pain, lumbosacral (M54. 5) Referral Organization [facility] Referring Provider First Name Nany Referring Provider Last Name Palma Referring Provider Specialty Family Medicine Referred Provider Specialty Chiropractor, licensed (ef fective January 1973) Referral Priority Routine General Notes Tegan Linares 02/11/2021 11 :47:18 AM > please obtain PA VITAL SIGNS Weight 218.8 lbs Feb, Weight-kg 99.25 kg Feb, Height 69 in Feb, BMI 32.31 kg/m2 Feb, Heart Rate 104 /min Feb, Respiratory Rate 18 /min Feb, Temperature 97.4 degrees Fahrenheit Feb, Oximetry 96% Feb, Blood pressure systolic 116 mm Hg Feb, Blood pressure diastolic 72 mm Hg Feb, MEDICATIONS Medication SIG (Take, Route, Frequency, Duration) Notes Start Da te End Date Status clonazePAM 0.5 MG 1 tablet at bedtime Orally Once a day Active Zoloft 25 MG 1 tablet Orally Once a day Active Zoloft 50 MG 1 tablet Orally Once a day Active PROCEDURES No Information RESULTS No Results REASON FOR VISIT Talk about referral MEDICAL (GENERAL) HISTORY Type Description Date Medical History Anxiety disorder Medical History Panic attacks Surgical History C section Surgical History gall bladder removal 2016 Surgical History appendectomy 2019 Surgical History tubal ligation 2015 Surgical History ear tubes Hospitalization History childbirth Hospitalization History surgery Goals Section No Information Health Concerns No Information MEDICAL EQUIPMENT No Information MENTAL STATUS No Information FUNCTIONAL STATUS No Information ASSESSMENTS Encounter Date Diagnosis Assessment Notes Treatment Notes Treatm ent Clinical Notes Feb, Back pain, lumbosacral (ICD-10 - M54.5) patient requesting referral to Chiropractic as per Insurance request Referral in place continue exercises/weight loss PLAN OF TREATMENT Treatment Notes Assessment Notes Clinical Notes Back pain, lumbosacral patient requestin g referral to Chiropractic as per Insurance requestReferral in placecontinue exercises/weight loss Referrals Referral Date Details Dr. Rajni Rod |continuity of care Next Appt Details Reason: Provider Name:Nany rCewsjose, 2020-07 09:30:00 AM, [address] [facility], , [place], [address], Insurance Providers Payer Name Payer Address Payer Phone Insured Name Patient Relati onship to Insured Coverage Start Date Coverage End Date [facility] COMMUNITY PLAN [facility] [address] [facility] [phone] SAV MANN"
--- OUTSIDE RECORDS SUMMARY | 2021-04-21 21:24 | CCD | Continuity of Care Document ---
Author Author [facility] [place] Organization Unknown Address [address] [place] [address] Phone [phone] Care Team Providers Care Environment Coordinator Name Role Phone [facility] [phone] Problems Description No Information Available Social History [...] Note Chlamydia, GC & Trich Amp 03/12/2021 [facility] [address] [place] [address] [phone] Chlamydia Dna Amplification NEGATIVE Normal Nega tive 1, 2 GC Dna Amplification NEGATIVE Normal Negative 3 Trichomonas vaginalis (Amp) NOT DETECTED Normal Negative 4 Laboratory test finding 03/12/[address] [address] [phone] Urine Culture FULL REPORT IN L <SEE [...] GROWTH Procedures Date Code Description Status 04/01/2021 24882 Office/Outpatient Established Lo w MDM 20-29 Min Completed 03/12/2021 46612 Office/Outpatient New Low MDM 30 -44 Minutes [...]
--- OUTSIDE RECORDS SUMMARY | 2021-04-21 21:24 | CCD | Continuity of Care Document ---
Author Author [facility] [place] Organization Unknown Address [address] [place] [address] Phone [phone] Problems Description No Information Available Social History Type Date Description Comments Sex Unknown ETOH Use Occasionally consumes alcohol Tobacco Use Start: Unknown The patient has never vaped Tobacco Use Start: Unknown Patient is a current smoker, smo kes every day 10-12 a day Allergies, Adverse Reactions, Alerts Active Allergies Criticality Reaction | Severity Comments Date Codeine Unable to assess criticality 03/12/2021 Inactive Allergies NKDA Unable to assess criticality 03/12/2021 Medications Active Medications SIG Qnty Indications Ordering Provide r Date Diflucan 150mg Tablets 1 tab by mouth every day x 1 day and repeat in 1 week if still occuring 2tabs Jerry Reynaga JR., M.D. 03/12/2021 Metronidazole 0.75% Gel 1 applicator daily x 7 days 70gm Jerry Reynaga JR., M.D. 02/2021 Advil this morning. Unknown Zoloft Unknown Klonopin Unknown Immunizations Description No Information Available Vital Signs Date Vital Result Comment 03/12/2021 7:39pm BP Systolic 127 mmHg BP Diastolic 87 mmHg Heart Rate 86 /min Respiratory Rate 14 /min O2 % BldC Oximetry 99 % Body Temperature 97.8 F Weight 214.00 lb Height 69 inches 5'9" BMI (Body Mass Index) 31.6 kg/m2 Pain Level 4 Results Test Acquired Date Facility Test Result H/L Range Note Laboratory test finding 03/12/2021 [facility] [address] [place] [address] [phone] Urine Culture <pending> Procedures Date Code Description Status 03/12/2021 30839 Office/Outpatient New Low MDM 30 -44 Minutes Completed Medical Devices Description No Information Available Encounters Type Date Location Provider Dx Diagnosis Office Visit 03/12/2021 6:35p Main Office RUDOLPH Philip R3 0.0 Dysuria N76.0 Acute vaginitis Assessments Date Code Description Provider 03/12/2021 R30.0 Dysuria RUDOLPH Harris 03/12/2021 N76.0 Acute vaginitis RUDOLPH Harris Plan of Treatment No Information Available Functional Status Description No Information Available Mental Status Description No Information Available Referrals Description No Information Available
--- OUTSIDE RECORDS SUMMARY | 2021-04-21 21:24 | CCD ---
Author Author [facility] Organization [facility] Address Unknown Phone Unavailable Care Team Providers Care Out Patient Therapist Name Role Phone Nany Waldrop Unavailable PROBLEMS Type Condition ICD9-CM Code NBT55-QO Code Onset Dates Condition S tatus W/U Status Risk SNOMED Code Notes Problem Nicotine use disorder F17.200 Active confirmed 66237562 Problem NIKI (generalized anxiety disorder) F41.1 Activ e confirmed 46046889 Problem Menorrhagia with regular cycle N92.0 Active confir med 654562316 ALLERGIES Allergen (clinical drug ingredient) Drug/Non Drug Allergy do cumented on EMR Reaction Allergy Type Onset Date Status codeine Codeine Sulfate([facility] Code:[address]-29) jaw locks up Drug Allergy Active ENCOUNTERS from 1985 to 2021-03-14 Encounter Location Date Provider Diagnosis [address] [phone] [place] [address] Mar, Nany Waldrop IMMUNIZATIONS No Information SOCIAL HISTORY Tobacco Use: Social History Observation Description Date Details (start date - stop date) Current Smoker Sex Assigned At : Social History Observation Description Sex Assigned At Unknown Education: Question Answer Notes Level of Education: Finished College Language: Question Answer Notes Languages spoken: Romansh Samaritan: Question Answer Notes Samaritan 33 None Domestic Violence: Question Answer Notes [...] Information RESULTS No Results REASON FOR VISIT [facility] referral - PCP not correct MEDICAL (GENERAL) HISTORY Type Description Date Medical [...] Details Provider Name:Racheal Rivero, 2021-04-18 03:20:00 PM, [address] [place] [address], , [place], [address], Provider Name:Nany Waldrop, 2020-07 09:30:00 AM, [address] [facility], , [place], [address], Insurance Providers Payer Name Payer Address Payer Phone Insured Name Patient Relati onship to Insured Coverage Start Date Coverage End Date [facility] COMMUN[facility] PLAN [facility] [address] [facility] [phone] SAV MANN self
--- OUTSIDE RECORDS SUMMARY | 2021-04-21 21:24 | CCD | Continuity of Care Document ---
Author Author [facility] H[place] Organization Unknown Address [address] [place] [address] Phone [phone] Care Team Providers Care Ophthalmology Surgical Technician Name Role Phone [facility] AUT[facility] Problems Description No Information Available Social [...] Note Chlamydia, GC & Trich Amp 03/12/2021 [facility] [address] [place] [address] [phone] Chlamydia Dna Amplification NEGATIVE Normal Nega tive 1, 2 GC Dna Amplification NEGATIVE Normal Negative 3 Trichomonas vaginalis (Amp) NOT DETECTED Normal Negative 4 Laboratory test finding 03/12/2021 [facility] [address] [place] [address] [phone] Urine Culture FULL REPORT IN L <SEE [...] test. 5 FULL REPORT IN LAB NOTES (Tia W and Ro). NO GROWTH Procedures Date Code Description Status 03/12/2021 88295 Office/Outpatient New Low MDM 30 -44 Minutes [...]
--- OUTSIDE RECORDS SUMMARY | 2021-04-21 21:24 | CCD | Continuity of Care Document ---
Author Author [facility] HARKINS [place] Organization Unknown Address [address] [place] [address] Phone [phone] Problems Description No Information Available Social History [...] H/L Range Note Laboratory test finding 03/12/2021 [facility] [address] [place] [address] [phone] Urine Culture <pending> Procedures Date Code Description Status 03/12/2021 66034 Office/Outpatient New Low MDM 30 -44 Minutes Completed Medical Devices Description No Information Available Encounters Type Date Location Provider Dx Diagnosis Office Visit 03/12/2021 6:35p Main Office RUDOLPH Philip R3 0.0 Dysuria Assessments Date Code Description Provider 03/12/2021 R30.0 Dysuria RUDOLPH Harris Plan of Treatment 03/12/2021 - RUDOLPH Philip* R30.0 Dysuria* Comments:* diflucan start Send urine for C&S change antibiotic if needed. f/u prn * All * New Medication:* Diflucan 150 mg - 1 tab by mouth every day x 1 day and repeat in 1 week if still occuring * Metronidazole 0.75 % - 1 applicator daily x 7 days Functional Status Description No Information Available Mental Status Description No Information Available Referrals Description No Information Available
--- OUTSIDE RECORDS SUMMARY | 2021-04-21 21:24 | CCD ---
Author Author [facility] Organization [facility] Address Unknown Phone Unavailable Care Team Providers Care Chemistry Instructor Name Role Phone Nany Waldrop Unavailable PROBLEMS Type Condition ICD9-CM Code FFL67-DA Code Onset Dates Condition S tatus W/U Status Risk SNOMED Code Notes Problem Nicotine use disorder F17.200 Active confirmed 11429779 Problem NIKI (generalized anxiety disorder) F41.1 Activ e confirmed 07802668 Problem Menorrhagia with regular cycle N92.0 Active confir med 766263641 ALLERGIES Allergen (clinical drug ingredient) Drug/Non Drug Allergy do cumented on EMR Reaction Allergy Type Onset Date Status codeine Codeine Sulfate([facility] Code:[address]-16) jaw locks up Drug Allergy Active ENCOUNTERS from 1985 to 2021-03-04 Encounter Location Date Provider Diagnosis [address] [phone] [place] [address] Feb, Nany Waldrop Acne, unspecified acne type L70.9 IMMUNIZATIONS No Information SOCIAL HISTORY Tobacco Use: Social History Observation Description Date Details (start date - stop date) Current Smoker Sex Assigned At : Social History Observation Description Sex Assigned At Unknown Education: Question Answer Notes Level of Education: Finished College Language: Question Answer Notes Languages spoken: Upper Sorbian Congregation: Question Answer Notes Congregation 33 None Domestic Violence: Question Answer Notes [...] Information RESULTS No Results REASON FOR VISIT changed prescription MEDICAL (GENERAL) HISTORY Type Description Date Medical [...] Treatment Notes Treatm ent Clinical Notes Feb, Acne, unspecified acne type (ICD-10 - L70.9) PLAN OF TREATMENT Medication Medication Name Sig Start Date Stop Date Benzoyl Peroxide Cleanser 6 % 1 application Externally Once a day for 10 day(s) Feb, Cephalexin 500 MG 1 capsule Orally bid for 7 day(s) Feb, Next Appt Details Provider Name:Nanykrystina Waldrop, 2020-07 09:30:00 AM, [address] [facility], , [place], [address], Insurance Providers Payer Name Payer Address Payer Phone Insured Name Patient Relati onship to Insured Coverage Start Date Coverage End Date [facility] COMMUN[facility] PLAN [facility] [address] [facility] [phone] SAV MANN
--- OUTSIDE RECORDS SUMMARY | 2021-04-21 21:24 | CCD ---
Author Author [facility] Organization [facility] Address Unknown Phone Unavailable Care Team Providers Care Marine Habitat Resource Specialist Name Role Phone Nany Waldrop Unavailable PROBLEMS Type Condition ICD9-CM Code DHI98-JS Code Onset Dates Condition S tatus W/U Status Risk SNOMED Code Notes Problem Nicotine use disorder F17.200 Active confirmed 56500665 Problem NIKI (generalized anxiety disorder) F41.1 Activ e confirmed 01875513 Problem Menorrhagia with regular cycle N92.0 Active confir med 811770582 ALLERGIES Allergen (clinical drug ingredient) Drug/Non Drug Allergy do cumented on EMR Reaction Allergy Type Onset Date Status codeine Codeine Sulfate([facility] Code:[address]-71) jaw locks up Drug Allergy Active ENCOUNTERS from 1985 to 2021-03-17 Encounter Location Date Provider Diagnosis [address] [phone] [place] [address] Mar, Nany Waldrop IMMUNIZATIONS No Information SOCIAL HISTORY Tobacco Use: Social History Observation Description Date Details (start date - stop date) Current Smoker Sex Assigned At : Social History Observation Description Sex Assigned At Unknown Education: Question Answer Notes Level of Education: Finished College Language: Question Answer Notes Languages spoken: Hebrew Samaritan: Question Answer Notes Samaritan 33 None [...] Information RESULTS No Results REASON FOR VISIT uti/uc visit MEDICAL (GENERAL) HISTORY Type Description Date Medical [...] Details Provider Name:Racheal Rivero, 2021-04-18 03:20:00 PM, [address] [place] [address], , [place], [address], Provider Name:Nany Waldrop, 2020-07 09:30:00 AM, [address] [place] [address], , [place], [address], Insurance Providers Payer Name Payer Address Payer Phone Insured Name Patient Relati onship to Insured Coverage Start Date Coverage End Date [employer] COMM[employer] [facility]AN [facility] [address] [facility] [phone] SAV MANN self
--- OUTSIDE RECORDS SUMMARY | 2021-04-21 21:24 | CCD ---
Author Author [facility] Organization [facility] Address Unknown Phone Unavailable Care Team Providers Care Industrial Manufacturing Technician Name Role Phone Nany Waldrop Unavailable PROBLEMS Type Condition ICD9-CM Code ZCK70-GU Code Onset Dates Condition S tatus W/U Status Risk SNOMED Code Notes Problem Nicotine use disorder F17.200 Active confirmed 57877417 Problem NIKI (generalized anxiety disorder) F41.1 Activ e confirmed 64683384 Problem Menorrhagia with regular cycle N92.0 Active confir med 980646093 ALLERGIES Allergen (clinical drug ingredient) Drug/Non Drug Allergy do cumented on EMR Reaction Allergy Type Onset Date Status codeine Codeine Sulfate([facility] Code:[address]-12) jaw locks up Drug Allergy Active ENCOUNTERS from 1985 to 2021-03-13 Encounter Location Date Provider Diagnosis [address] [phone] [place] [address] Mar, Nany Waldrop IMMUNIZATIONS No Information SOCIAL HISTORY Tobacco Use: Social History Observation Description Date Details (start date - stop date) Current Smoker Sex Assigned At : Social History Observation Description Sex Assigned At Unknown Education: Question Answer Notes Level of Education: Finished College Language: Question Answer Notes Languages spoken: Amharic Spiritism: Question Answer Notes Spiritism 33 None Domestic Violence: Question Answer Notes [...] Information RESULTS No Results REASON FOR VISIT referral MEDICAL (GENERAL) HISTORY Type Description Date [...] Details Provider Name:Racheal Rivero, 2021-04-18 03:20:00 PM, [address] [place] [address], , [place], [address], Provider Name:Nany Waldrop, 2020-07 09:30:00 AM, [address] [place] [address], , [place], [address], Insurance Providers Payer Name Payer Address Payer Phone Insured Name Patient Relati onship to Insured Coverage Start Date Coverage End Date [facility] COMM[facility] [address] [facility] [address] [phone] SAV MANN self
--- OUTSIDE RECORDS SUMMARY | 2021-04-21 21:24 | CCD ---
Author Author [facility] Organization [facility] Address Unknown Phone Unavailable Care Team Providers Care Bessemer Regulator Name Role Phone WEST, Lucy GALDAMEZ Unavailable Unavailable LETTIERE, Lucy GALDAMEZ Unavailable Unavailable LETTIERE, Lucy GALDAMEZ Unavailable Unavailable LETTIERE, Lucy GALDAMEZ Unavailable Unavailable LETTIERE, Lucy GALDAMEZ Unavailable Unavailable LETTIERE, Lucy GALDAMEZ Unavailable Unavailable LETTIERE, Lucy GALDAMEZ Unavailable Unavailable LETTIERE, Lucy GALDAMEZ Unavailable Unavailable LETTIERE, Lucy NARANJO PA Unavailable Unavailable LETTIERE, Lucy NARANJO PA Unavailable Unavailable LETTIERE, Lucy NARANJO PA Unavailable Unavailable LETTIERE, Lucy NARANJO PA Unavailable Unavailable LETTIERE, Lucy NARANJO PA Unavailable Unavailable LETTIERE, Lucy NARANJO PA Unavailable Unavailable LETTIERE, Lucy NARANJO PA Unavailable Unavailable LETTIERE, Lucy NARANJO PA Unavailable Unavailable LETTIERE, Lucy GALDAMEZ Unavailable Unavailable LETTIERE, Lucy GALDAMEZ Unavailable Unavailable LETTIERE, Lucy GALDAMEZ Unavailable Unavailable LETTIERE, Lucy GALDAMEZ Unavailable Unavailable LETTIERE, Lucy GALDAMEZ Unavailable Unavailable LETTIERE, A MARCELLA PA Unavailable Unavailable LETTIERE, A MARCELLA PA Unavailable Unavailable LETTIERE, A MARCELLA PA Unavailable Unavailable LETTIERE, A MARCELLA PA Unavailable Unavailable LETTIERE, A MARCELLA PA Unavailable Unavailable LETTIERE, A MARCELLA PA Unavailable Unavailable LETTIERE, A MARCELLA PA Unavailable Unavailable LETTIERE, A MARCELLA PA Unavailable Unavailable LETTIERE, A MARCELLA PA Unavailable Unavailable LETTIERE, A MARCELLA PA Unavailable Unavailable PETROFF, RIVAS PA Unavailable Unavailable PETROFF, RIVAS PA Unavailable Unavailable PETROFF, RIVAS PA Unavailable Unavailable PETROFF, RIVAS PA Unavailable Unavailable PETROFF, RIVAS PA Unavailable Unavailable PETROFF, RIVAS PA Unavailable Unavailable PETROFF, RIVAS PA Unavailable Unavailable PETROFF, RIVAS PA Unavailable [facility]available [facility] Unavailable Unavailable PETROFF, RIVAS Unavailable Unavailable Campanaro, Mare Shell PA Unavailable Unavailable Campanaro, Mare Shell PA Unavailable Unavailable Campanaro, Mare Shell PA Unavailable Unavailable Campanaro, Mare Shell PA Unavailable Unavailable Campanaro, Mare Shell PA Unavailable Unavailable Campanaro, Mare Shell PA Unavailable Unavailable Campanaro, Mare Shell PA Unavailable Unavailable Campanaro, Mare Shell PA Unavailable Unavailable Campanaro, Mare Shell PA Unavailable Unavailable Campanaro, Mare Shell PA Unavailable Unavailable Campanaro, Mare Shell PA Unavailable Unavailable Campanaro, Mare Shell PA Unavailable Unavailable Campanaro, Mare Shell PA Unavailable Unavailable Campanaro, Mare Shell PA Unavailable Unavailable Campanaro, Mare Shell PA Unavailable Unavailable Campanaro, Mare Shell PA Unavailable Unavailable Campanaro, Mare Shell PA Unavailable Unavailable CHANKELLEYECPRASHANT, C JARRETT ALANIS Unavailable Unavailable CHANLIECPRASHANT, C JARRETT ALANIS Unavailable Unavailable CHANLIECCO, C JARRETT MD Unavailable Unavailable CHANLIECCO, C JARRETT MD Unavailable Unavailable CHANLIECCO, C JARRETT MD Unavailable Unavailable CHANLIECCO, C JARRETT ALANIS Unavailable Unavailable CHANLIECPRASHANT, C JARRETT ALANIS Unavailable Unavailable CHANLIECCO, C JARRETT ALANIS Unavailable Unavailable CHANLIECCO, C JARRETT MD Unavailable Unavailable CHANLIECCO, C JARRETT MD Unavailable Unavailable CHANLIECCO, C JARRETT MD Unavailable Unavailable NON, PHYSICIAN STAFF Unavailable Unavailable Re-disclosure Warning The records that [...] is protected by Article 27-F of the [facility] Public Health law. If you continue you may have access to information: Regarding HIV / AIDS; Provided by facilities licensed or operated by the [facility] Office of Mental Health; or Provided by the [facility] Office for People With Developmental Disabilities. If such information is present, then the following [facility] mandated warning applies: This information has [...] law may result in a fine or [place] health care facility sentence or both. A general authorization for the release of medical or other information is NOT sufficient authorization for further disc losure. Allergies and Adverse Reactions Type Description Substance Reaction Status Data Source(s ) Drug Allergy Drug Allergy NKDA MEDENT ([facility]) Encounters Encounter Providers Location Date Indications Data Source(s ) Outpatient Attender: MARCELLA haji 04/01/2021 05:20:00 PM EDT MEDENT ([facility], [facility]) Unknown [address] [facility] [facility] [place] [address] 03/19/2021 12:00:00 AM EDT eCW1 ([facility]) Unknown [address] [facility] [address] [place] [address] 03/13/2021 12:00:00 AM EDT eCW1 ([facility]) Unknown [address] [facility] [place] [address] 03/13/2021 12:00:00 AM EDT eCW1 ([facility]) [place] [address] [facility] [place] [address] 03/13/2021 12:00:00 AM EDT eCW1 ([facility]) Outpatient Attender: Shell Castrejon raissa 03/12/2021 06:35:00 PM EDT [facility] ([facility]) [place] [address] [facility] [address] 03/03/2021 12:00:00 AM EDT eCW1 ([facility]) [place] [address] [facility] [place] [address] 02/26/2021 12:00:00 AM EDT [facility]1 ([facility]) [place] [address] [facility] [place] [address] 02/26/2021 12:00:00 AM EDT eCW1 ([facility]) Out[place] [address] [facility] [place] [address] 02/11/2021 12:00:00 AM EDT eCW1 ([facility]) [place] [address] [facility] [place] [address] 01/16/2021 12:00:00 AM EDT eCW1 ([facility]) [place] [address] [facility] [address] 12/04/2020 12:00:00 AM EDT eCW1 ([facility]) Outpatient 08/23/2020 03:08:53 PM EST DocuTap ([facility]) Emergency Attender: JARRETT HODGES MDConsultant: STAF F NON 06/21/2020 01:39:00 PM EST - 06/21/2020 02:26:00 PM EST [facility] Patient discharged. Emergency Attender: RIVAS GALDAMEZ EMERGENCY ROOM-ER 03/05 01:19:00 PM EDT - 03/22/2020 05:00:00 PM EDT [facility] Patient discharged. Outpatient Attender: RIVAS Siddiqi stacie: RIVAS PASTORConsultant: [facility] 03/22/2020 01:00:00 PM EDT [facility] Medications Medication Brand Name Start Date Product Form Dose Route Admi nistrative Instructions Pharmacy Instructions Status Indications Reaction Description Data Source(s) 150 mg 03/12/2021 12:00:00 AM EDT tablet 2 TAKE ONE TABLET BY MOUTH EVERY DAY FOR 1 DAY AND REPEAT IN ONE WEEK IF STILL OCCURING TAKE ONE TABLET BY MOUTH EVERY DAY FOR 1 DAY AND REPEAT IN ONE WEEK IF STILL OCCURING SOLD: 03/12/2021 [facility] 0.75 % 03/12/2021 12:00:00 AM EDT gel 70 INSERT ONE APPLICATORFUL VAGINALLY EVERY DAY FOR 7 DAYS INSERT ONE APPLICATORFUL VAGINALLY EVERY DAY FOR 7 DAY S SOLD: 03/12/2021 [facility] Metronidazole 0.0075 MG/MG Vaginal Gel Metronidazole 12:00:00 AM EDT completed MEDENT ([facility], [facility]) Fluconazole 150 MG Oral Tablet [Diflucan] Diflucan 03/12/2021 1 2:00:00 AM EDT ORAL completed MEDENT ([facility], [facility]) Cephalexin 500 MG Oral Capsule Cephalexin 500 MG 02/26/2021 12:00:0 0 AM EDT 1.0 {capsule} active Cephalexin 500 MG eCW1 ([facility]) Cephalexin 500 MG Oral Capsule Cephalexin 500 MG 02/26/2021 12:00:0 0 AM EDT 1.0 {capsule} active Cephalexin 500 MG eCW1 ([facility]) Cephalexin 500 MG Oral Capsule Cephalexin 500 MG 02/26/2021 12:00:0 0 AM EDT 1.0 {capsule} active Cephalexin 500 MG eCW1 ([facility]) Benzoyl Peroxide 60 MG/ML Medicated Liquid Soap Benzoy l Peroxide Cleanser 6 % Benzoyl Peroxide Cleanser 6 % 02/26/2021 12:00:00 AM EDT 1.0 {appli cation} active Benzoyl Peroxide Cleanser 6 % eCW1 ([facility]) Cephalexin 500 MG Oral Capsule Cephalexin 500 MG 02/26/2021 12:00:0 0 AM EDT 1.0 {capsule} active Cephalexin 500 MG eCW1 ([facility]) Benzoyl Peroxide 60 MG/ML Medicated Liquid Soap Benzoy l Peroxide Cleanser 6 % Benzoyl Peroxide Cleanser 6 % 02/26/2021 12:00:00 AM EDT 1.0 {appli cation} active Benzoyl Peroxide Cleanser 6 % eCW1 ([facility]) Benzoyl Peroxide 60 MG/ML Medicated Liquid Soap Benzoy l Peroxide Cleanser 6 % Benzoyl Peroxide Cleanser 6 % 02/26/2021 12:00:00 AM EDT 1.0 {appli cation} active Benzoyl Peroxide Cleanser 6 % eCW1 ([facility]) Cephalexin 500 MG Oral Capsule Cephalexin 500 MG 02/26/2021 12:00:0 0 AM EDT 1.0 {capsule} active Cephalexin 500 MG eCW1 ([facility]) Cephalexin 500 MG Oral Capsule Cephalexin 500 MG 02/26/2021 12:00:0 0 AM EDT 1.0 {capsule} active Cephalexin 500 MG eCW1 ([facility]) Benzoyl Peroxide 60 MG/ML Medicated Liquid Soap Benzoy l Peroxide Cleanser 6 % Benzoyl Peroxide Cleanser 6 % 02/26/2021 12:00:00 AM EDT 1.0 {appli cation} active Benzoyl Peroxide Cleanser 6 % eCW1 ([facility]) Benzoyl Peroxide 60 MG/ML Medicated Liquid Soap Benzoy l Peroxide Cleanser 6 % Benzoyl Peroxide Cleanser 6 % 02/26/2021 12:00:00 AM EDT 1.0 {appli cation} active Benzoyl Peroxide Cleanser 6 % eCW1 ([facility]) Benzoyl Peroxide 60 MG/ML Medicated Liquid Soap Benzoy l Peroxide Cleanser 6 % Benzoyl Peroxide Cleanser 6 % 02/26/2021 12:00:00 AM EDT 1.0 {appli cation} active Benzoyl Peroxide Cleanser 6 % eCW1 ([facility]) Cephalexin 500 MG Oral Capsule Cephalexin 500 MG 02/26/2021 12:00:0 0 AM EDT 1.0 {capsule} active Cephalexin 500 MG eCW1 ([facility]) Benzoyl Peroxide 60 MG/ML Medicated Liquid Soap Benzoy l Peroxide Cleanser 6 % Benzoyl Peroxide Cleanser 6 % 02/26/2021 12:00:00 AM EDT 1.0 {appli cation} active Benzoyl Peroxide Cleanser 6 % eCW1 ([facility]) Insurance Providers Payer name Policy type / Coverage type Policy ID Covered libertarian ID Covered libertarian's relationship to isabel Policy Isabel Plan Information [employer] emp [id number] Employee [id number] [employer] [id number] Self [id number] [employer] COMMUNITY PLAN [facility] [id number] SP [id number] [place]ED[place] [id number] SP [id number] MEDICAID [id number] S [id number] [facility](MCAID) O [id number] S [id number] MEDICAID M [id number] S [id number] UN COMMUNITY PLAN XIX [id number] 18 [id number] SELF PAY ONLY [id number] SP [id number] SELF PAY [id number] S [id number] [facility] COMM[facility] [id number] SP [id number] O UNAVAILABLE UNAVAILA BLE [facility] [id number] SP [id number] Problems, Conditions, and Diagnoses Code Display Name Description Problem Type Effective Dates Data Source(s) Z760 Encounter for issue of repeat prescripti on Encounter for issue of repeat prescription Diagnosis 06/21/2020 01:39:00 PM [facility] F419 Anxiety disorder, unspecified Anxiety disorder, unspec ified Diagnosis 06/21/2020 01:39:00 PM [facility] Z79.899 Other long goods drier (current) drug therapy O THER ANODIZER (CURRENT) DRUG THERAPY Diagnosis 03/22/2020 01:19:00 PM EDT [facility] F17.210 Nicotine dependence, cigarettes, uncompl icated NICOTINE DEPENDENCE, CIGARETTES, UNCOMPLICATED Diagnosis 03/22/2020 01:19:00 PM EDT [facility] R55 Syncope and collapse SYNCOPE AND COLLAPSE Diagnosis 03/22/2020 01:19:00 PM EDT [facility] F41.1 [id number] NIKI (generalized anxiety disorder) Proble m 12/04/2020 12:00:00 AM EDT eCW1 ([facility]) F17.200 [id number] Nicotine use disorder Problem 12/04/2020 12: 00:00 AM EDT eCW1 ([facility]) N92.0 [id number] Menorrhagia with regular cycle Problem 11/27/2020 12:00:00 AM EDT eCW1 ([facility]) Surgeries/Procedures Procedure Description Date Indications Data Source(s) OFFICE OUTPATIENT VISIT 15 MINUTES 04/01/2021 12:00:00 AM EDT MEDENT ([facility]) OFFICE OUTPATIENT NEW 30 MINUTES 03/12/2021 12:00:00 A M EDT MED[facility] ([facility]) Results ID Date Data Source 0504/07/2021 12:00:00 AM EDT [facility] Name Value Range Interpretation Code Description Data Danelle rce(s) Supporting Document(s) SARS-CoV2 Rapid Antigen Negative [facility] This lab was ordered by [facility] and reported by [facility]. ID Date Data Source [id number] 04/01/2021 12:00:00 AM EDT [facility] Name Value Range Interpretation Code Description Data Danelle rce(s) Supporting Document(s) SARS-CoV2 Rapid Antigen Negative [facility] This lab was reported by [facility]. ID Date Data Source [id number] 03/12/2021 07:55:00 PM EDT MEDENT ([facility]) Name Value Range Interpretation Code Description Data Danelle rce(s) Supporting Document(s) Bacteria identified in Urine by Culture Laboratory [facility] Rx Diflucan/Metronidazole ID Date Data Source [id number] 03/12/2021 07:55:00 PM EDT [facility] Name Value Range Interpretation Code Description Data Danelle rce(s) Supporting Document(s) GC Dna Amplification Laboratory test result [facility] ([facility]) Rx Diflucan/Metronidazole Chlamydia Dna Amplification Laboratory test result [facility] ([facility]) Rx Diflucan/Metronidazole Trichomonas vaginalis (Amp) Laboratory test result [facility]) Rx Diflucan/Metronidazole ID Date Data Source [id number] 06/21/2020 01:39:00 PM [facility] 1 OrderSheet [facility] Emergency Department [address] [place] [address] Phone #: ext- [phone] 06/21/2020 13:31 Patient: [...] (19:01 06/22/2020)][Electronically locked by Jessica Ramirez R.N. (14:06/21/2020)] Name Value Range Interpretation Code Description Data Danelle rce(s) Supporting Document(s) ID Date Data Source [id number] 06/21/2020 01:39:00 PM [facility] 1 Medication Reconciliation Report [facility] Emergency Department [address] [place] [address] Phone #: ext- [phone] 06/21/2020 13:31 Patient: ASV MANN Sex: F : 1985 Age: 35yWeight: [...] Dispense 30tablet. Refills: 0. Substitution permitted.Pharmacy - [facility] [id number] [facility] [address] ; [place] [address]. Phone: . -- RUDOLPH Hull Name Value Range Interpretation Code Description Data Danelle rce(s) Supporting Document(s) ID Date Data Source [id number] 06/21/2020 01:39:00 PM EST [facility] 1 Medication Administration Record [facility] Emergency Department [address] [place] [address] Phone #: ext- [phone] 06/21/2020 13:31 Patient: SAV MANN Sex: F : 1985 Age: 35yWeight: 96.1 kgHeight/Length: 69 inBMI: 31.3ALLERGIES: Codiene Date/Time Medication Administered Medication OrderedGiven ATIVAN [PO] (LORAZEPAM) Ativan PO 0.5 mg (NOW)14:24 06/21/2020 Dose: 0.5 mg Tablets Jessica Menendez R.N. Name Value Range Interpretation Code Description Data Danelle rce(s) Supporting Document(s) ID Date Data Source [id number] 06/21/2020 01:39:00 PM EST [facility] 1 General Instructions [facility] Emergency Department [address] [place] [address] Phone #: ext- [phone] 06/21/2020 13:31 [id number] Sex: F : 1985 Age: 35yMedication refill.Normal [...] Dispense 30tablet. Refills: 0. Substitution permitted.Pharmacy - [facility] [id number] [facility] [facility] [address] ; [place] [address]. .Follow-up:Follow up with your doctor as scheduled. [...] appointment for follow-up care. 2 General Instructions [facility] Emergency Department [address] [place] [address] Phone #: ext- [phone] 06/21/2020 13:31 Patient: [...] day to give emergency care. But this hospital does not give phone advice formedical conditions. If you need advice for a condition that can't wait to be seen by your doctor, youwill need to come back to this facility in person. [phone] The [employer]. [address] [place] [address], [place] [address]. All rights reserved. This information is not intended as asubstitute for professional medical care. Always follow your healthcare professional's instructions. You have been given the following additional information: Medical Screening Exam, Nonemergent 3 General Instructions [facility] Emergency Department [address] [place] [address] Phone #: ext- [phone] 06/21/2020 13:31 Patient: SAV MANN Sex: F : 1985 Age: 35y(Electronically signed by RUDOLPH Hull 06/22/2020 19:01) Name Value Range Interpretation Code Description Data Danelle rce(s) Supporting Document(s) ID Date Data Source [id number] 06/21/2020 01:39:00 PM EST [facility] 1 Clinical Report - Nurses [facility] Emergency Department [address] [place] [address] Phone #: ext- [phone] 06/21/2020 13:31 Patient: SAV MANN Sex: F : 1985 Age: 35yTRIAGEArrived by private vehicle. Historian: patient. ( [facility] pt was [facility] 2 days ago but sertralinewas refilled.).Triage time: 13:36 06/21/2020. Acuity: LEVEL 5.Chief Complaint: (pt reports she had a panic attack at work. pt was seen at [facility] day before yesterday formed refill and given PSA consult to see a PCM sooner than Aug. Pt reports that she was given sertraline [facility]. Pt has appt start of July. Pt establishing with intake at [facility].).Alert.This started today. --13:42 06/21/20 Cira Huffman [...] harming or 2 Clinical Report - Nurses [facility] Emergency Department [address] [place] [address] Phone #: [phone] 06/21/2020 13:31 [id number] Sex: F : 1985 Age: 35y killing [...] Patient verbalized understanding. Written instructions provided in [place]orese. The patient was discharged home and accompanied by assistant bookkeeper. She left ambulatory and via private vehicle. Chairman And Ceo driving. --14:25 3 Clinical Report - Nurses [facility] Emergency Department [address] [place] [address] Phone #: ext- [phone] 06/21/2020 13:31 Patient: [...] rce(s) Supporting Document(s) ID Date Data Source [id number] 06/21/2020 01:39:00 PM EST [facility] 1 Clinical Report - Physicians/Mid Levels [facility] Emergency Department [address] [place] [address] Phone #: ext- [phone] 06/21/2020 13:31 Patient: SAV MANN Sex: F : 1985 Age: 35y Time Seen: 14:05 06/21/2020. Arrived- By private vehicle. Historian- patient.HISTORY OF PRESENT ILLNESS Chief Complaint: Anxiety and out of medication. PRESCRIPTION REFILL REQUEST. Patient is from [place] of town. This started 2 days ago; pt states she was told to come here by [facility] for a couple of weeks worth of med refill. pt was denied clonazapam ref[facility] at [facility] 2 days ago but sertraline [...] Oriented X 3.PROGRESS AND PROCEDURESCourse of Care: 14:15 Jun 21 2020. Evaluation after observation. (Discussed need for follow up with 2 Clinical Report - Physicians/Mid Levels [facility] Emergency Department [address] [place] [address] Phone #: ext- [phone] 06/21/2020 13:31 Patient: SAV MANN Sex: F : 1985 Age: 35y and PCP for refill of clonazepam and pt is agreeable with dx and tx plan.). Patient counseled in person regarding the patient's stable condition, diagnosis and need for follow-up. Patient agrees with plan of care. 14:15 Jun 21 2020. Disposition: Discharged home in good [...] tablet. Refills: 0. Substitution permitted. Pharmacy - [facility] [id number] [facility] ; [place] [address]. . Follow-up: Follow up with your doctor as scheduled. Reason for referral: evaluation and treatment. Summary of care provided to patient. Understanding of the discharge instructions verbalized by patient.(Electronically signed by RUDOLPH Hull 06/22/2020 19:01) 3Clinical Report - Physicians/Mid Levels [facility] Emergency Department [address] [place] [address] Phone #: ext- [phone] 06/21/2020 13:31 Patient: SAV MANN Sex: F : 1985 Age: 35y Name Value Range Interpretation Code Description Data Danelle rce(s) Supporting Document(s) ID Date Data Source [id number] 03/22/2020 06:55:00 PM EDT [facility] Patient: SAV MANN Observation Rep ort - [facility]VisitID: [id number] [place] [address] [phone], FRegistration Date/Time: 03/22/2020 12:00 Weight:97.5 kg (S). [...] rce(s) Supporting Document(s) ID Date Data Source [id number] 03/22/2020 04:37:00 PM EDT [facility] TSYSORDER [id number] Name Value Range Interpretation Code Description Data Danelle rce(s) Supporting Document(s) TROPONIN I < 0.017 ng/mL 0.0-0.056 [facility] ID Date Data Source [id number] 03/22/2020 02:17:00 PM EDT [facility] DATE OF EXAMINATION: 03/22/2020 12:44 EDT CHEST [...] rce(s) Supporting Document(s) ID Date Data Source [id number] 03/22/2020 01:45:00 PM EDT [facility] TSYSORDER [id number] Name Value Range Interpretation Code Description Data Danelle rce(s) Supporting Document(s) LACTIC ACID 0.9 mmol/L 0.4-2.0 [facility] ID Date Data Source [id number] 03/22/2020 01:45:00 PM EDT [facility] Name Value Range Interpretation Code Description Data Danelle rce(s) Supporting Document(s) TROPONIN I < 0.017 ng/mL 0.0-0.056 [facility] ID Date Data Source [id number] 03/22/2020 01:45:00 PM EDT [facility] Name Value Range Interpretation Code Description Data Danelle rce(s) Supporting Document(s) GLUCOSE 89 mg/dL 74-106 [facility] BLOOD UREA NITROGEN 10 mg/dL 718 [facility] CREATININE 0.9 mg/dL 0.6-1.0 [facility] SODIUM 139 mmol/L 136-145 [facility] POTASSIUM 3.7 mmol/L 3.5-5.1 [facility] CHLORIDE 101 mmol/L 98-107 [facility] CO2 29 mmol/L 21-32 [facility] CALCIUM 8.5 mg/dL 8.5-10.1 [facility] ANION GAP 9.0 mmol/L 5-12 [facility] GLOMERULAR FILTRATION RATE 71 mL/min [facility] GFR IS CALCULATED IN mL/min/1.73m2 BAR L FUNCTION: >90MILDLY DECREASED: 60-89MILDY TO MODERATELY DECREASED: 45-59 MODERATELY TO SEVERELY DECREASED: 30-44SEVERELY DECREASED: 15-29RENAL FAILURE: <15 AST 15 U/L 15-37 [facility] ALT 23 U/L 12-78 [facility] ALKALINE PHOSPHATASE 87 U/L 46-116 [facility] pital TOTAL BILIRUBIN 0.2 mg/dL 0.2-1.0 [facility] TOTAL PROTEIN 7.7 g/dl 6.4-8.2 [facility] ALBUMIN 4.2 gm/dL 3.4-5.0 [facility] ID Date Data Source [id number] 03/22/2020 01:39:00 PM EDT [facility] TSYSORDER [id number] Name Value Range Interpretation Code Description Data Danelle rce(s) Supporting Document(s) URINE RBC TNTC /hpf 0-3 H [facility] URINE WBC 0-2 /hpf 0-5 H [facility] URINE BACTERIA TRACE NONE SEEN [facility] ID Date Data Source [id number] 03/22/2020 01:33:00 PM T [facility] ital TSYSORDER [id number] Name Value Range Interpretation Code Description Data Danelle rce(s) Supporting Document(s) URINE COLOR. [facility] URINE APPEARANCE CLEAR [facility] l SPECIFIC GRAVITY,URINE 1.020 1.001-1.035 [facility] URINE LEUKOCYTE ESTERASE NEGATIVE NEGATIVE [facility] URINE NITRATE NEGATIVE NEGATIVE [facility] PH,URINE 7.0 5.0-9.0 [facility] URINE PROTEIN NEGATIVE mg/dL NEGATIVE [facility] benja URINE GLUCOSE (UA) NEGATIVE mg/dL NEGATIVE [facility] URINE KETONE NEGATIVE mg/dL NEGATIVE [facility] UROBILINOGEN NORMAL(0.2-1) mg/dL 0-1 R [facility] URINE BILIRUBIN NEGATIVE NEGATIVE [facility] URINE BLOOD 3+(LARGE) NEGATIVE [facility] ID Date Data Source [id number] 03/22/2020 01:34:00 PM EDT [facility] al TSYSORDER [id number] Name Value Range Interpretation Code Description Data Danelle rce(s) Supporting Document(s) HCG,SERUM NEGATIVE NEGATIVE [facility] False negative results may occur when th e levels of hCG arebelow the sensitivity level of the test. If isstill suspected, a first morning urine specimen should becollected 48hrs later.This test has a sensitivity of 10mIU/mL in serum nnd69wAO/mL in urine. ID Date Data Source [id number] 03/22/2020 01:21:00 PM EDT [facility] TSYSORDER [id number] Name Value Range Interpretation Code Description Data Danelle rce(s) Supporting Document(s) WHITE BLOOD COUNT 9.5 K/mm3 4.0-10.0 [facility] al RED BLOOD COUNT 4.51 M/mm3 4.00-5.50 [facility] HEMOGLOBIN 12.2 gm/dL 12.0-16.0 [facility] HEMATOCRIT 37.1 % 36.0-48.8 [facility] MEAN CELL VOLUME 82.3 fl 80-96 [facility] MEAN CORPUSCULAR HEMOGLOBIN 27.1 pg 27.0-31.0 [facility] MEAN CORPUSCULAR HGB CONC 32.9 g/dl 32.0-36.0 [facility] RED CELL DISTRIBUTION WIDTH 14.8 % 10.0-14.5 H [facility] PLATELET COUNT 303 K/mm3 172-450 [facility] MEAN PLATELET VOLUME 10.7 fl 9.0-13.0 [facility] pital GRAN % 68.6 % 50-80.0 [facility] IG% 0.1 % 0.0-0.2 [facility] LYMPH % 22.3 % 25.0-50.0 L [facility] MONO % 6.6 % 2.0-10.0 [facility] EOS % 1.9 % 0-5.0 [facility] BASO % 0.5 % 0.0-2.0 [facility] GRAN # 6.5 K/mm3 2.0-8.00 [facility] IG# 0.0 K/mm3 0.0-0.2 [facility] LYMPH # 2.1 K/mm3 1.0-5.0 [facility] MONO # 0.6 K/mm3 0.10-1.20 [facility] EOS # 0.2 K/mm3 0.0-0.5 [facility] BASO # 0.1 K/mm3 0.0-0.2 [facility] Procedure Social History Code Duration Value Status Description Data Source(s ) Smoking 02/26/2021 12:00:00 AM EDT Current Smoker completed Curre nt Smoker eCW1 ([facility]) Smoking 02/26/2021 12:00:00 AM EDT Current Smoker completed Curre nt Smoker eCW1 ([facility]) Smoking 02/26/2021 12:00:00 AM EDT Current Smoker completed Curre nt Smoker eCW1 ([facility]) Smoking 02/26/2021 12:00:00 AM EDT Current Smoker completed Curre nt Smoker eCW1 ([facility]) Smoking 02/26/2021 12:00:00 AM EDT Current Smoker completed Curre nt Smoker eCW1 ([facility]) Smoking 02/26/2021 12:00:00 AM EDT Current Smoker completed Curre nt Smoker eCW1 ([facility]) Smoking 02/26/2021 12:00:00 AM EDT Current Smoker completed Curre nt Smoker eCW1 ([facility]) Smoking 02/11/2021 12:00:00 AM EDT Current Smoker completed Curre nt Smoker eCW1 ([facility]) Smoking 01/14/2021 12:00:00 AM EDT Current Smoker completed Curre nt Smoker eCW1 ([facility]) Smoking 12/04/2020 12:00:00 AM EDT Current Smoker completed Curre nt Smoker eCW1 ([facility]) Vital Signs ID Date Data Source UNK Name Value Range Interpretation Code Description Data Source(s) Systolic blood pressure 116 mm[Hg] 116 [facility]Hg] [facility] Body weight 210.00 [lb_av] 210.00 [lb_av] MED[facility] T ([facility]) Body height 69 [in_i] 69 [in_i] [facility] 5'9" Body mass index (BMI) [Ratio] 31.0 kg/m2 31.0 k g/m2 [facility]) Diastolic blood pressure 81 mm[Hg] 81 mm[Hg] [facility] Heart rate 106 /min 106 /min [facility] Respiratory rate 16 /min 16 /min [facility] Oxygen saturation in Arterial blood by Pulse oximetry 100 % 100 % [facility]) Body temperature 98.0 [degF] 98.0 [degF] [facility] ([facility], [facility]) Systolic blood pressure 127 mm[Hg] 127 mm[Hg] M EDENT ([facility], [facility]) Body mass index (BMI) [Ratio] 31.6 kg/m2 31.6 k g/m2 [facility] ([facility], [facility]) Oxygen saturation in Arterial blood by Pulse oximetry 99 % 99 % [facility] ([facility], [facility]) Diastolic blood pressure 87 mm[Hg] 87 mm[Hg] [facility] ([facility], [facility]) Heart rate 86 /min 86 /min [facility] ([facility], [facility]) Respiratory rate 14 /min 14 /min [facility] ( [facility], [facility]) Body weight 214.00 [lb_av] 214.00 [lb_av] MEDEN T ([facility], [facility]) Body height 69 [in_i] 69 [in_i] [facility] ([facility], [facility]) 5'9" Body temperature 97.8 [degF] 97.8 [degF] [facility] ([facility], [facility]) Body weight 218 [lb_av] 218 [lb_av] eCW1 ([facility]) Body weight 98.88 kg 98.88 kg eCW1 ([facility]) Body height 69 [in_i] 69 [in_i] eCW1 ([facility]) Body mass index (BMI) [Ratio] 32.19 kg/m2 32.19 kg/m2 eCW1 ([facility]) Heart rate 84 /min 84 /min eCW1 ([facility]) Respiratory rate 17 /min 17 /min eCW1 ([facility]) Body temperature 97.5 [degF] 97.5 [degF] eCW1 ( [facility]) Systolic blood pressure 128 mm[Hg] 128 mm[Hg] e CW1 ([facility]) Diastolic blood pressure 87 mm[Hg] 87 mm[Hg] eCW1 ([facility]) Body weight 218.8 [lb_av] 218.8 [lb_av] eCW1 ([facility]) Body mass index (BMI) [Ratio] 32.31 kg/m2 32.31 kg/m2 eCW1 ([facility]) Heart rate 104 /min 104 /min eCW1 ([facility]) Respiratory rate 18 /min 18 /min eCW1 ([facility]) Body temperature 97.4 [degF] 97.4 [degF] eCW1 ( [facility]) Systolic blood pressure 116 mm[Hg] 116 mm[Hg] e CW1 ([facility]) Body weight 99.25 kg 99.25 kg eCW1 ([facility]) Body height 69 [in_i] 69 [in_i] eCW1 ([facility]) Diastolic blood pressure 72 mm[Hg] 72 mm[Hg] eCW1 ([facility]) Body weight 225.12 [lb_av] 225.12 [lb_av] eCW1 ([facility]) Body height 69 [in_i] 69 [in_i] eCW1 ([facility]) Body mass index (BMI) [Ratio] 33.24 kg/m2 33.24 kg/m2 eCW1 ([facility]) Heart rate 100 /min 100 /min eCW1 ([facility]) Respiratory rate 18 /min 18 /min eCW1 ([facility]) Body temperature 97.4 [degF] 97.4 [degF] eCW1 ( [facility]) Systolic blood pressure 110 mm[Hg] 110 mm[Hg] e CW1 ([facility]) Diastolic blood pressure 72 mm[Hg] 72 mm[Hg] eCW1 ([facility]) Patient Treatment Plan of Care Planned Activity Planned Date Details Description Data Source (s) Cephalexin 500 MG Oral Capsule 02/26/2021 12:00:00 AM EDT eCW1 ([facility]) Benzoyl Peroxide 60 MG/ML Medicated Liquid Soap 02/26/2021 12:00:00 AM EDT eCW1 ([facility]) Cephalexin 500 MG Oral Capsule 02/26/2021 12:00:00 AM EDT eCW1 ([facility]) Benzoyl Peroxide 60 MG/ML Medicated Liquid Soap 02/26/2021 12:00:00 AM EDT eCW1 ([facility]) Cephalexin 500 MG Oral Capsule 02/26/2021 12:00:00 AM EDT eCW1 ([facility]) Benzoyl Peroxide 60 MG/ML Medicated Liquid Soap 02/26/2021 12:00:00 AM EDT eCW1 ([facility]) Cephalexin 500 MG Oral Capsule 02/26/2021 12:00:00 AM EDT eCW1 ([facility]) Benzoyl Peroxide 60 MG/ML Medicated Liquid Soap 02/26/2021 12:00:00 AM EDT eCW1 ([facility]) Cephalexin 500 MG Oral Capsule 02/26/2021 12:00:00 AM EDT eCW1 ([facility]) Benzoyl Peroxide 60 MG/ML Medicated Liquid Soap 02/26/2021 12:00:00 AM EDT eCW1 ([facility]) Cephalexin 500 MG Oral Capsule 02/26/2021 12:00:00 AM EDT eCW1 ([facility]) Benzoyl Peroxide 60 MG/ML Medicated Liquid Soap 02/26/2021 12:00:00 AM EDT eCW1 ([facility]) Cephalexin 500 MG Oral Capsule 02/26/2021 12:00:00 AM EDT eCW1 ([facility]) Benzoyl Peroxide 60 MG/ML Medicated Liquid Soap 02/26/2021 12:00:00 AM EDT eCW1 ([facility])
--- OUTSIDE RECORDS SUMMARY | 2021-04-21 21:24 | CCD ---
Author Author [facility] Organization [facility] Address Unknown Phone Unavailable Care Team Providers Care Joint Cutter Name Role Phone Nany Waldrop Unavailable PROBLEMS Type Condition ICD9-CM Code [id number] Code Onset Dates Condition S tatus W/U Status Risk SNOMED Code Notes Problem Nicotine use disorder F17.200 Active confirmed 21865613 Problem NIKI (generalized anxiety disorder) F41.1 Activ e confirmed 85129350 Problem Menorrhagia with regular cycle N92.0 Active confir med [id number] ALLERGIES Allergen (clinical drug ingredient) Drug/Non Drug Allergy do cumented on EMR Reaction Allergy Type Onset Date Status codeine Codeine Sulfate([facility] Code:[address]-36) jaw locks up Drug Allergy Active ENCOUNTERS from 1985 to 2021-02-26 Encounter Location Date Provider Diagnosis [address] [phone] [place] [address] Feb, Nany Waldrop IMMUNIZATIONS No Information SOCIAL HISTORY Tobacco Use: Social History Observation Description Date Details (start date - stop date) Current Smoker Sex Assigned At : Social History Observation Description Sex Assigned At Unknown Education: Question Answer Notes Level of Education: Finished College Language: Question Answer Notes Languages spoken: Mongolian Mosque: Question Answer Notes Mosque 33 None Domestic Violence: Question Answer Notes [...] Information RESULTS No Results REASON FOR VISIT pimple on lip MEDICAL (GENERAL) HISTORY Type Description Date Medical [...] 7 day(s) Feb, Next Appt Details Provider Name:Nany Waldrop, 2020-07 09:30:00 AM, [address] [facility], , [place], [address], Insurance Providers Payer Name Payer Address Payer Phone Insured Name Patient Relati onship to Insured Coverage Start Date Coverage End Date [facility] [employer] [address] [facility] [id number] SAV MANN self
[2021-04-21] MEDS ORDERED: KETOROLAC 60MG 2ML VIAL IM ONE (22:30)
--- OUTSIDE RECORDS SUMMARY | 2021-04-21 22:40 | CCD ---
Author Author [facility] Organization [facility] Address Unknown Phone Unavailable Care Team Providers Care Diet Counselor Name Role Phone WEST, Lucy GALDAMEZ Unavailable [...] is protected by Article 27-F of the [facility] Public Health law. If you continue you may have access to information: Regarding HIV / AIDS; Provided by facilities licensed or operated by the [facility] Office of Mental Health; or Provided by the [facility] Office for People With Developmental Disabilities. If such information is present, then the following [facility] mandated warning applies: This information has been [...] law may result in a fine or snf sentence or both. A general authorization for the release of medical or other information is NOT sufficient authorization for further disc losure. Allergies and Adverse Reactions Type Description Substance Reaction Status Data Source(s ) Drug Allergy Drug Allergy NKDA MEDENT ([facility]) Encounters Encounter Providers Location Date Indications Data Source(s ) Outpatient Attender: MARCELLA haji 04/01/2021 05:20:00 PM EDT [facility] ([facility]) Unknown [address] [place] [address] 03/19/2021 12:00:00 AM EDT eCW1 ([facility]) Unknown [address] [place] [address] 03/13/2021 12:00:00 AM EDT eCW1 ([facility]) Unknown [address] [place] [address] 03/13/2021 12:00:00 AM EDT eCW1 ([facility]) [place] [address] [place] [address] 03/13/2021 12:00:00 AM EDT eCW1 ([facility]) Outpatient Attender: Shell Castrejon raissa 03/12/2021 06:35:00 PM EDT [facility] ([facility]) [place] [address] [place] [address] 03/03/2021 12:00:00 AM EDT eCW1 ([facility]) [place] [address] [place] [address] 02/26/2021 12:00:00 AM EDT [facility]1 ([facility]) [place] [address] [place] [address] 02/26/2021 12:00:00 AM EDT eCW1 ([facility]) [place] [address] [place] [address] 02/11/2021 12:00:00 AM EDT [facility]CW1 ([facility]) [place] [address] [place] [address] 01/16/2021 12:00:00 AM EDT eCW1 ([facility]) [place] [address] [place] [address] 12/04/2020 12:00:00 AM EDT eCW1 ([facility]) Outpatient 08/23/2020 03:08:53 PM EST DocuTap ([facility]) Emergency Attender: JARRETT HODGES MDConsultant: STAF F NON 06/21/2020 01:39:00 PM EST - 06/21/2020 02:26:00 PM EST [facility] Patient discharged. Emergency Attender: RIVAS GALDAMEZ EMERGENCY ROOM-ER 03/05 01:19:00 PM EDT - 03/22/2020 05:00:[address] [facility] Patient discharged. Outpatient Attender: RIVAS Siddiqi stacie: RIVAS PASTORConsultant: [facility] 03/22/2020 01:00:00 PM EDT [facility] [...] DAY FOR 7 DAY S SOLD: 03/12/2021 [facility] Metronidazole 0.0075 MG/MG Vaginal Gel Metronidazole 12:00:00 AM EDT completed [facility] ([facility]) Fluconazole 150 MG Oral Tablet [Diflucan] Diflucan 03/12/2021 1 2:00:00 AM EDT ORAL completed MEDENT ([facility]) Cephalexin 500 MG Oral Capsule Cephalexin 500 MG 02/26/2021 12:00:0 0 AM EDT 1.0 {capsule} active Cephalexin 500 MG eCW1 ([facility]) Cephalexin 500 MG Oral Capsule Cephalexin 500 MG 02/26/2021 12:00:0 0 AM EDT 1.0 {capsule} active Cephalexin 500 MG eCW1 ([facility]) Cephalexin 500 MG Oral Capsule Cephalexin 500 MG 02/26/2021 12:00:0 0 AM EDT 1.0 {capsule} active Cephalexin 500 MG eCW1 ([facility]) Benzoyl Peroxide 60 MG/ML Medicated Liquid Soap Benzoy l Peroxide Cleanser 6 % Benzoyl Peroxide Cleanser 6 % 02/26/2021 12:00:00 AM EDT 1.0 {appli cation} active Benzoyl Peroxide Cleanser 6 % eCW1 ([facility]) Cephalexin 500 MG Oral Capsule Cephalexin 500 MG 02/26/2021 12:00:0 0 AM EDT 1.0 {capsule} active Cephalexin 500 MG eCW1 ([facility]) Benzoyl Peroxide 60 MG/ML Medicated Liquid Soap Benzoy l Peroxide Cleanser 6 % Benzoyl Peroxide Cleanser 6 % 02/26/2021 12:00:00 AM EDT 1.0 {appli cation} active Benzoyl Peroxide Cleanser 6 % eCW1 ([facility]) Benzoyl Peroxide 60 MG/ML Medicated Liquid Soap Benzoy l Peroxide Cleanser 6 % Benzoyl Peroxide Cleanser 6 % 02/26/2021 12:00:00 AM EDT 1.0 {appli cation} active Benzoyl Peroxide Cleanser 6 % eCW1 ([facility]) Cephalexin 500 MG Oral Capsule Cephalexin 500 MG 02/26/2021 12:00:0 0 AM EDT 1.0 {capsule} active Cephalexin 500 MG eCW1 ([facility]) Cephalexin 500 MG Oral Capsule Cephalexin 500 MG 02/26/2021 12:00:0 0 AM EDT 1.0 {capsule} active Cephalexin 500 MG eCW1 ([facility]) Benzoyl Peroxide 60 MG/ML Medicated Liquid Soap Benzoy l Peroxide Cleanser 6 % Benzoyl Peroxide Cleanser 6 % 02/26/2021 12:00:00 AM EDT 1.0 {appli cation} active Benzoyl Peroxide Cleanser 6 % eCW1 ([facility]) Benzoyl Peroxide 60 MG/ML Medicated Liquid Soap Benzoy l Peroxide Cleanser 6 % Benzoyl Peroxide Cleanser 6 % 02/26/2021 12:00:00 AM EDT 1.0 {appli cation} active Benzoyl Peroxide Cleanser 6 % eCW1 ([facility]) Benzoyl Peroxide 60 MG/ML Medicated Liquid Soap Benzoy l Peroxide Cleanser 6 % Benzoyl Peroxide Cleanser 6 % 02/26/2021 12:00:00 AM EDT 1.0 {appli cation} active Benzoyl Peroxide Cleanser 6 % eCW1 ([facility]) Cephalexin 500 MG Oral Capsule Cephalexin 500 MG 02/26/2021 12:00:0 0 AM EDT 1.0 {capsule} active Cephalexin 500 MG eCW1 ([facility]) Benzoyl Peroxide 60 MG/ML Medicated Liquid Soap Benzoy l Peroxide Cleanser 6 % Benzoyl Peroxide Cleanser 6 % 02/26/2021 12:00:00 AM EDT 1.0 {appli cation} active Benzoyl Peroxide Cleanser 6 % eCW1 ([facility]) Insurance Providers Payer name Policy type / Coverage type Policy ID Covered libertarian ID Covered libertarian's relationship to isabel Policy Isabel Plan Information [employer] emp [id number] Employee [id number] [place] [employer] [id number] Self [id number] [employer] [facility] [id number] SP [id number] EMEDNY [id number] SP [id number] MEDICAID [id number] S [id number] [facility](MCA[facility]) O [id number] S [id number] MEDICAID M [id number] UN COMMUNITY PLAN XIX [id number] 18 [id number] SELF PAY ONLY [id number] SP [id number] SELF PAY [id number] S [id number] [facility] COMMUNITY PLAN [facility] [id number] SP [id number] O UNAVAILABLE UNAVAILA BLE [facility] [id number] SP [id number] Problems, Conditions, and Diagnoses Code Display Name Description Problem Type Effective Dates Data Source(s) Z760 Encounter for issue of repeat prescripti on Encounter for issue of repeat prescription Diagnosis 06/21/2020 01:39:00 PM [facility] F419 Anxiety disorder, unspecified Anxiety disorder, unspec ified Diagnosis 06/21/2020 01:39:00 PM [facility] 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 F41.1 [id number] NIKI (generalized anxiety disorder) Proble m 12/04/2020 12:00:00 AM EDT eCW1 ([facility]) F17.200 [id number] Nicotine use disorder Problem 12/04/2020 12: 00:00 AM EDT eCW1 ([facility]) N92.0 [id number] Menorrhagia with regular cycle Problem 11/27/2020 12:00:00 AM EDT eCW1 ([facility]) Surgeries/Procedures Procedure Description Date Indications Data Source(s) OFFICE OUTPATIENT VISIT 15 MINUTES 04/01/2021 12:00:00 AM EDT MEDENT ([facility]) OFFICE OUTPATIENT NEW 30 MINUTES 03/12/2021 12:00:00 A M EDT MED[facility] ([facility]) Results ID Date Data Source 0504/07/2021 12:00:00 AM EDT [facility] Name Value Range Interpretation Code Description Data Danelle rce(s) Supporting Document(s) SARS-CoV2 Rapid Antigen Negative [facility] This lab was ordered by [facility] and reported by [facility]. ID Date Data Source [id number] 04/01/2021 12:00:00 AM EDT [facility] Name Value Range Interpretation Code Description Data Danelle rce(s) Supporting Document(s) SARS-CoV2 Rapid Antigen Negative [facility] This lab was reported by [facility]. ID Date Data Source [id number] 03/12/2021 07:55:00 PM EDT MEDENT ([facility]) Name Value Range Interpretation Code Description Data Danelle rce(s) Supporting Document(s) Bacteria identified in Urine by Culture [facility] Rx Diflucan/Metronidazole ID Date Data Source [id number] 03/12/2021 07:55:00 PM EDT [facility] Name Value Range Interpretation Code Description Data Danelle rce(s) Supporting Document(s) GC Dna Amplification Laboratory test result [facility]) Rx Diflucan/Metronidazole Chlamydia Dna Amplification Laboratory test result [facility]) Rx Diflucan/Metronidazole Trichomonas vaginalis (Amp) Laboratory test result [facility]) Rx Diflucan/Metronidazole ID Date Data Source [id number] 06/21/2020 01:39:00 PM [facility] 1 OrderSheet [facility] Emergency Department [address] [place] [address] Phone #: ext- [phone] 06/21/2020 13:31 Patient: [...] rce(s) Supporting Document(s) ID Date Data Source [id number] 06/21/2020 01:39:00 PM [facility] 1 Medication Reconciliation Report [facility] Emergency Department [address] [place] [address] Phone #: ext- [phone] 06/21/2020 13:31 Patient: [...] Dispense 30tablet. Refills: 0. Substitution permitted.Pharmacy - [facility] [phone] [address] ; [place] [address]. Phone: . -- RUDOLPH Hull Name Value Range Interpretation Code Description Data Danelle rce(s) Supporting Document(s) ID Date Data Source [id number] 06/21/2020 01:39:00 PM EST [facility] 1 Medication Administration Record [facility] Emergency Department [address] [place] [address] Phone #: ext- [phone] 06/21/2020 13:31 Patient: SAV MANN Sex: F : 1985 Age: 35yWeight: 96.1 kgHeight/Length: 69 inBMI: 31.3ALLERGIES: Codiene Date/Time Medication Administered Medication OrderedGiven ATIVAN [PO] (LORAZEPAM) Ativan PO 0.5 mg (NOW)14:24 06/21/2020 Dose: 0.5 mg Tablets Jessica Menendez R.N. Name Value Range Interpretation Code Description Data Danelle rce(s) Supporting Document(s) ID Date Data Source [id number] 06/21/2020 01:39:00 PM EST [facility] 1 General Instructions [facility] Emergency Department [address] [place] [address] Phone #: ext- [phone] 06/21/2020 13:31 [id number] Sex[facility] F : 1985 Age: 35yMedication refill.Normal [...] Dispense 30tablet. Refills: 0. Substitution permitted.Pharmacy - [facility] [phone] ; [place] [address]. .Follow-up:Follow up with your doctor as scheduled. [...] appointment for follow-up care. 2 General Instructions [facility] Emergency Department [address] [place] [address] Phone #: ext- [phone] 06/21/2020 13:31 Patient: [...] come back to this facility in person. [phone] [employer]. [address] [place] [address], [place] [address]. All rights reserved. This information is not intended as asubstitute for professional medical care. Always follow your healthcare professional's instructions. You have been given the following additional information: Medical Screening Exam, Nonemergent 3 General Instructions [facility] Emergency Department [address] [place] [address] Phone #: ext- [phone] 06/21/2020 13:31 Patient: SAV MANN Sex: F : 1985 Age: 35y(Electronically signed by RUDOLPH Hull 06/22/2020 19:01) Name Value Range Interpretation Code Description Data Danelle rce(s) Supporting Document(s) ID Date Data Source [id number] 06/21/2020 01:39:00 PM EST [facility] 1 Clinical Report - Nurses [facility] Emergency Department [address] [place] [address] Phone #: ext- [phone] 06/21/2020 13:31 Patient: SAV MANN Sex: F : 1985 Age: 35yTRIAGEArrived by private vehicle. Historian: patient. ( pt [facility] pt was denied clonazapam refill at [facility] 2 days ago but sertralinewas refilled.).Triage time: 13:36 06/21/2020. Acuity: LEVEL 5.Chief Complaint: (pt reports she had a panic attack at work. pt was seen at [facility] day before yesterday formed refill and given PSA consult to see a PCM sooner than Aug. Pt reports that she was given sertraline [facility]. Pt has appt start of July. Pt establishing with intake at [facility].).Alert.This started today. --13:42 06/21/20 [...] harming or 2 Clinical Report - Nurses [facility] Emergency Department [address] [place] [address] Phone #: psi- [phone] 06/21/2020 13:31 [id number] Sex: F : 1985 Age: 35y killing [...] Patient verbalized understanding. Written instructions provided in American. The patient was discharged home and accompanied by rig builder. She left ambulatory and via private vehicle. Scullion Chief driving. --14:25 3 Clinical Report - Nurses [facility] Emergency Department [address] [place] [address] Phone #: ext- [phone] 06/21/2020 13:31 Patient: [...] rce(s) Supporting Document(s) ID Date Data Source [id number] 06/21/2020 01:39:00 PM EST [facility] 1 Clinical Report - Physicians/Mid Levels [facility] Emergency Department [address] [place] [address] Phone #: ext- [phone] 06/21/2020 13:31 Patient: SAV MANN Sex: F : 1985 Age: 35y Time Seen: 14:05 06/21/2020. Arrived- By private vehicle. Historian- patient.HISTORY OF PRESENT ILLNESS Chief Complaint: Anxiety and out of medication. PRESCRIPTION REFILL REQUEST. Patient is from out of town. This started 2 days ago; pt states she was told to come here by [facility] for a couple of weeks worth of med refill. pt was denied clonazapam refill at [facility] 2 days ago but sertraline was refilled. [...] with 2 Clinical Report - Physicians/Mid Levels [facility] Emergency Department [address] [place] [address] Phone #: ext- [phone] 06/21/2020 13:31 Patient: SVA MANN Sex: F : 1985 Age: 35y [...] tablet. Refills: 0. Substitution permitted. Pharmacy - [facility] [phone] ; [place] [address]. . Follow-up: Follow up with your doctor as scheduled. Reason for referral: evaluation and treatment. Summary of care provided to patient. Understanding of the discharge instructions verbalized by patient.(Electronically signed by RUDOLPH Hull 06/22/2020 19:01) 3Clinical Report - Physicians/Mid Levels [facility] Emergency Department [address] [place] [address] Phone #: ext- [phone] 06/21/2020 13:31 Patient: SAV MANN Sex: F : 1985 Age: 35y Name Value Range Interpretation Code Description Data Danelle rce(s) Supporting Document(s) ID Date Data Source [id number] 03/22/2020 06:55:00 PM EDT [facility] Patient: SAV MANN Observation Rep ort - Physicians/Mid Levels [facility].VisitID: [id number] [place] [address] [phone], FRegistration Date/Time: 03/22/2020 12:00 Weight:97.5 kg (S). [...] rce(s) Supporting Document(s) ID Date Data Source [id number] 03/22/2020 04:37:00 PM EDT [facility] TSYSORDER [id number] Name Value Range Interpretation Code Description Data Danelle rce(s) Supporting Document(s) TROPONIN I < 0.017 ng/mL 0.0-0.[address] [facility] ID Date Data Source [id number] 03/22/2020 02:17:00 PM EDT [facility] [...] rce(s) Supporting Document(s) ID Date Data Source [id number] 03/22/2020 01:45:00 PM EDT [facility] TSYSORDER [id number] Name Value Range Interpretation Code Description Data Danelle rce(s) Supporting Document(s) LACTIC ACID 0.9 mmol/L 0.4-2.[address] [facility] ID Date Data Source [id number] 03/22/2020 01:45:00 PM EDT [facility] Name Value Range Interpretation Code Description Data Danelle rce(s) Supporting Document(s) TROPONIN I < 0.017 ng/mL 0.0-0.[address] [facility] ID Date Data Source [id number] 03/22/2020 01:45:00 PM EDT [facility] Name Value Range Interpretation Code Description Data Danelle rce(s) Supporting Document(s) GLUCOSE 89 mg/dL 74-[address] [facility] BLOOD UREA NITROGEN 10 mg/dL 718 [facility] ital CREATININE 0.9 mg/dL 0.6-1.[address] [facility] SODIUM 139 mmol/L 136-[address] [facility] POTASSIUM 3.7 mmol/L 3.5-5.[address] [facility] CHLORIDE 101 mmol/L 98-[address] [facility] CO2 29 mmol/L 21-[address] [facility] CALCIUM 8.5 mg/dL 8.5-10.[address] [facility] ANION GAP 9.0 mmol/L 5-[address] [facility] GLOMERULAR FILTRATION RATE 71 mL/min [facility] GFR IS CALCULATED IN mL/min/1.73m2 BAR L FUNCTION: >90MILDLY DECREASED: 60-89MILDY TO MODERATELY DECREASED: 45-59 MODERATELY TO SEVERELY DECREASED: 30-44SEVERELY DECREASED: 15-29RENAL FAILURE: <15 AST 15 U/L 15-[address] [facility] ALT 23 U/L 12-[address] [facility] ALKALINE PHOSPHATASE 87 U/L 46-116 [facility] pital TOTAL BILIRUBIN 0.2 mg/dL 0.2-1.[address] [facility] TOTAL PROTEIN 7.7 g/dl 6.4-8.[address] [facility] ALBUMIN 4.2 gm/dL 3.4-5.[address] [facility] ID Date Data Source [id number] 03/22/2020 01:39:00 PM EDT [facility] TSYSORDER [id number] Name Value Range Interpretation Code Description Data Danelle rce(s) Supporting Document(s) URINE RBC TNTC /hpf 0-[address] [facility] URINE WBC 0-2 /hpf 0-[address] [facility] URINE BACTERIA TRACE NONE SEEN [facility] ID Date Data Source [id number] 03/22/2020 01:33:00 PM T [facility] ital TSYSORDER [id number] Name Value Range Interpretation Code Description Data Danelle rce(s) Supporting Document(s) URINE COLOR. [facility] URINE APPEARANCE CLEAR [facility] l SPECIFIC GRAVITY,URINE 1.020 1.001-1.[address] [facility] URINE LEUKOCYTE ESTERASE NEGATIVE NEGATIVE [facility] URINE NITRATE NEGATIVE NEGATIVE [facility] PH,URINE 7.0 5.0-9.[address] [facility] URINE PROTEIN NEGATIVE mg/dL NEGATIVE [facility] benja URINE GLUCOSE (UA) NEGATIVE mg/dL NEGATIVE [facility] URINE KETONE NEGATIVE mg/dL NEGATIVE [facility] UROBILINOGEN NORMAL(0.2-1) mg/dL 0-1 R [facility] URINE BILIRUBIN NEGATIVE NEGATIVE [facility] URINE BLOOD 3+(LARGE) NEGATIVE [facility] ID Date Data Source [id number] 03/22/2020 01:34:00 PM EDT [facility] TSYSORDER [id number] Name Value Range Interpretation Code Description Data Danelle rce(s) Supporting Document(s) HCG,SERUM NEGATIVE NEGATIVE [facility] False negative results may occur when th e levels of hCG arebelow the sensitivity level of the test. If isstill suspected, a first morning urine specimen should becollected 48hrs later.This test has a sensitivity of 10mIU/mL in serum zyn03zKV/mL in urine. ID Date Data Source [id number] 03/22/2020 01:21:00 PM EDT [facility] TSYSORDER [id number] Name Value Range Interpretation Code Description Data Danelle rce(s) Supporting Document(s) WHITE BLOOD COUNT 9.5 K/mm3 4.0-10.0 [facility] RED BLOOD COUNT 4.51 M/mm3 4.00-5.50 [facility] HEMOGLOBIN 12.2 gm/dL 12.0-16.[address] [facility] HEMATOCRIT 37.1 % 36.0-48.[address] [facility] MEAN CELL VOLUME 82.3 fl 80-96 [facility] MEAN CORPUSCULAR HEMOGLOBIN 27.1 pg 27.0-31.0 [facility] MEAN CORPUSCULAR HGB CONC 32.9 g/dl 32.0-36.0 [facility] RED CELL DISTRIBUTION WIDTH 14.8 % 10.0-14.5 H [facility] PLATELET COUNT 303 K/mm3 172-[address] [facility] MEAN PLATELET VOLUME 10.7 fl 9.0-13.0 [facility] pital GRAN % 68.6 % 50-80.[address] [facility] IG% 0.1 % 0.0-0.[address] [facility] LYMPH % 22.3 % 25.0-50.[address] [facility] MONO % 6.6 % 2.0-10.[address] [facility] EOS % 1.9 % 0-5.[address] [facility] BASO % 0.5 % 0.0-2.[address] [facility] GRAN # 6.5 K/mm3 2.0-8.[address] [facility] IG# 0.0 K/mm3 0.0-0.[address] [facility] LYMPH # 2.1 K/mm3 1.0-5.[address] [facility] MONO # 0.6 K/mm3 0.10-1.[address] [facility] EOS # 0.2 K/mm3 0.0-0.[address] [facility] BASO # 0.1 K/mm3 0.0-0.[address] [facility] Procedure Social History Code Duration Value Status Description Data Source(s ) Smoking 02/26/2021 12:00:00 AM EDT Current Smoker completed Curre nt Smoker eCW1 ([facility]) Smoking 02/26/2021 12:00:00 AM EDT Current Smoker completed Curre nt Smoker eCW1 ([facility]) Smoking 02/26/2021 12:00:00 AM EDT Current Smoker completed Curre nt Smoker eCW1 ([facility]) Smoking 02/26/2021 12:00:00 AM EDT Current Smoker completed Curre nt Smoker eCW1 ([facility]) Smoking 02/26/2021 12:00:00 AM EDT Current Smoker completed Curre nt Smoker eCW1 ([facility]) Smoking 02/26/2021 12:00:00 AM EDT Current Smoker completed Curre nt Smoker eCW1 ([facility]) Smoking 02/26/2021 12:00:00 AM EDT Current Smoker completed Curre nt Smoker eCW1 ([facility]) Smoking 02/11/2021 12:00:00 AM EDT Current Smoker completed Curre nt Smoker eCW1 ([facility]) Smoking 01/14/2021 12:00:00 AM EDT Current Smoker completed Curre nt Smoker eCW1 ([facility]) Smoking 12/04/2020 12:00:00 AM EDT Current Smoker completed Curre nt Smoker eCW1 ([facility]) Vital Signs ID Date Data Source [id number] Name Value Range Interpretation Code Description Data Source(s) Systolic blood pressure 116 mm[Hg] 116 mm[Hg] [facility] Diastolic blood pressure 81 mm[Hg] 81 mm[Hg] [facility] ([facility] Heart rate 106 /min 106 /min [facility] Respiratory rate 16 /min 16 /min [facility] ( [facility]) Oxygen saturation in Arterial blood by Pulse oximetry 100 % 100 % [facility] ([facility] Body temperature 98.0 [degF] 98.0 [degF] [facility] ([facility] Body height 69 [in_i] 69 [in_i] [facility] ([facility] [facility] 5'9" Body mass index (BMI) [Ratio] 31.0 kg/m2 31.0 k g/m2 [facility] ([facility]) Body weight 210.00 [lb_av] 210.00 [lb_av] MEDEN T ([facility] Body mass index (BMI) [Ratio] 31.6 kg/m2 31.6 k g/m2 [facility] ([facility] Oxygen saturation in Arterial blood by Pulse oximetry 99 % 99 % [facility]ENT ([facility] Systolic blood pressure 127 mm[Hg] 127 mm[Hg] M EDENT ([facility] Diastolic blood pressure 87 mm[Hg] 87 mm[Hg] MEDENT ([facility] Heart rate 86 /min 86 /min [facility] ([facility] Respiratory rate 14 /min 14 /min MEDENT ( [facility] Body weight 214.00 [lb_av] 214.00 [lb_av] MEDEN T ([facility] Body height 69 [in_i] 69 [in_i] MEDENT ([facility] 5'9" Body temperature 97.8 [degF] 97.8 [degF] MEDENT ([facility] Body mass index (BMI) [Ratio] 32.19 kg/m2 32.19 kg/m2 eCW1 ([facility]) Body weight 98.88 kg 98.88 kg eCW1 ([facility]) Body height 69 [in_i] 69 [in_i] eCW1 ([facility]) Body weight 218 [lb_av] 218 [lb_av] eCW1 ([facility]) Heart rate 84 /min 84 /min eCW1 ([facility]) Respiratory rate 17 /min 17 /min eCW1 ([facility]) Body temperature 97.5 [degF] 97.5 [degF] eCW1 ( [facility]) Systolic blood pressure 128 mm[Hg] 128 mm[Hg] e CW1 ([facility]) Diastolic blood pressure 87 mm[Hg] 87 mm[Hg] eCW1 ([facility]) Body weight 218.8 [lb_av] 218.8 [lb_av] eCW1 ([facility]) Body weight 99.25 kg 99.25 kg eCW1 ([facility]) Body height 69 [in_i] 69 [in_i] eCW1 ([facility]) Body mass index (BMI) [Ratio] 32.31 kg/m2 32.31 kg/m2 eCW1 ([facility]) Heart rate 104 /min 104 /min eCW1 ([facility]) Respiratory rate 18 /min 18 /min eCW1 ([facility]) Body temperature 97.4 [degF] 97.4 [degF] eCW1 ( [facility]) Systolic blood pressure 116 mm[Hg] 116 mm[Hg] e CW1 ([facility]) Diastolic blood pressure 72 mm[Hg] 72 mm[Hg] eCW1 ([facility]) Body weight 225.12 [lb_av] 225.12 [lb_av] eCW1 ([facility]) Body height 69 [in_i] 69 [in_i] eCW1 ([facility]) Body mass index (BMI) [Ratio] 33.24 kg/m2 33.24 kg/m2 eCW1 ([facility]) Heart rate 100 /min 100 /min eCW1 ([facility]) Respiratory rate 18 /min 18 /min eCW1 ([facility]) Body temperature 97.4 [degF] 97.4 [degF] eCW1 ( [facility]) Systolic blood pressure 110 mm[Hg] 110 mm[Hg] e CW1 ([facility]) Diastolic blood pressure 72 mm[Hg] 72 mm[Hg] eCW1 ([facility]) Patient Treatment Plan of Care Planned Activity Planned Date Details Description Data Source (s) Cephalexin 500 MG Oral Capsule 02/26/2021 12:00:00 AM EDT eCW1 ([facility]) Benzoyl Peroxide 60 MG/ML Medicated Liquid Soap 02/26/2021 12:00:00 AM EDT eCW1 ([facility]) Cephalexin 500 MG Oral Capsule 02/26/2021 12:00:00 AM EDT eCW1 ([facility]) Benzoyl Peroxide 60 MG/ML Medicated Liquid Soap 02/26/2021 12:00:00 AM EDT eCW1 ([facility]) Cephalexin 500 MG Oral Capsule 02/26/2021 12:00:00 AM EDT eCW1 ([facility]) Benzoyl Peroxide 60 MG/ML Medicated Liquid Soap 02/26/2021 12:00:00 AM EDT eCW1 ([facility]) Cephalexin 500 MG Oral Capsule 02/26/2021 12:00:00 AM EDT eCW1 ([facility]) Benzoyl Peroxide 60 MG/ML Medicated Liquid Soap 02/26/2021 12:00:00 AM EDT eCW1 ([facility]) Cephalexin 500 MG Oral Capsule 02/26/2021 12:00:00 AM EDT eCW1 ([facility]) Benzoyl Peroxide 60 MG/ML Medicated Liquid Soap 02/26/2021 12:00:00 AM EDT eCW1 ([facility]) Cephalexin 500 MG Oral Capsule 02/26/2021 12:00:00 AM EDT eCW1 ([facility]) Benzoyl Peroxide 60 MG/ML Medicated Liquid Soap 02/26/2021 12:00:00 AM EDT eCW1 ([facility]) Cephalexin 500 MG Oral Capsule 02/26/2021 12:00:00 AM EDT eCW1 ([facility]) Benzoyl Peroxide 60 MG/ML Medicated Liquid Soap 02/26/2021 12:00:00 AM EDT eCW1 ([facility])
== END 2021-04-21 22:45 | disposition home or self-care (01) ==
LOC: M ED 21:18
DX: R07.89 Other chest pain (principal); F41.1 Generalized anxiety disorder; Z79.899 Other long term (current) drug therapy
CPT/HCPCS: 96372; 99283; J1885

== ENCOUNTER → 2021-04-29 | Outpatient (CLI) | payer OTHER, MEDICAID ==
--- NOTE | 2021-04-29 14:04 | REP ---
INDICATION: MENORRHAGIA WITH REGULAR CYCLE. COMPARISON: None. TECHNIQUE: Transabdominal and transvaginal scanning performed. FINDINGS: Uterine dimensions are 9.1 x 4.7 x 4.7 cm. Endometrial echo is 3 mm in AP dimension and centrally placed. The bladder measures 5.4 x 7 x 2 x 8.5cm. The right ovary has dimensions of 2.8 x 2.5 x 2.1 cm. It's Doppler flow is normal with a resistive index of 0.68. The left ovary dimensions are 3.2 x 1.6 x 1.9 cm. It's Doppler flow was normal with resistive index of 0.49. There is no adnexal mass identified. There is trace physiologic free fluid in the cul-de-sac. IMPRESSION: Negative pelvic ultrasound. <Electronically signed by Gautam Park > 04/29/21 1400
== END ==
LOC: M WHC 13:07
PROVIDERS: ATTEND Advanced Practice Midwife
DX: N92.0 Excessive and frequent menstruation with regular cycle (principal)

== ENCOUNTER 2021-06-24 23:22 | Emergency (ER) | payer OTHER, MEDICAID ==
[~2021-06-24] VITALS: Ht 175.3 cm; Wt 96.2 kg
[2021-06-24] MEDS ORDERED: AMOX875T2 PO (23:35)
[2021-06-24] MEDS ORDERED: PRED20TA PO (23:35)
[2021-06-25] MEDS ORDERED: ASPIRIN 81 MG CHEW TABLET PO ONE (00:15)
[2021-06-25 00:41] LABS: BASO % 0.4 % (0.0-1.0); EOS # 0.1 10^3/uL (0.0-0.5); EOS % 0.7 % (0.0-3.0); HEMATOCRIT 36.8 % (36.0-47.0); HEMOGLOBIN 12.1 g/dl (12.0-15.5); LYMPH # 1.5 10^3/uL (1.5-5.0); LYMPH % 14.2 % (24.0-44.0); MEAN CORPUSCULAR HGB CONC 32.9 g/dl (32.0-36.5); MEAN CORPUSCULAR VOLUME 85.2 fl (80.0-96.0); MONO # 0.5 10^3/uL (0.0-0.8); MONO % 4.2 % (2.0-8.0); NEUTROPHILS # 8.6 10^3/uL (1.5-8.5); NEUTROPHILS % 80.2 % (36.0-66.0); PLATELET COUNT, AUTOMATED 269 10^3/uL (150-450); RED BLOOD COUNT 4.32 10^6/uL (4.00-5.40); WHITE BLOOD COUNT 10.7 10^3/uL (4.0-10.0)
[2021-06-25 01:07] LABS: CK-MB VALUE MASS < 1.0 NG/ML (<3.6); CPK CREATINE PHOSPHOKINASE 74 U/L (26-192); MB/CK RELATIVE INDEX 1.35 (< OR =4)
[2021-06-25 01:23] LABS: RSV AMPLIFICATION NEGATIVE (NEGATIVE)
[2021-06-25 01:47] LABS: ALBUMIN 3.7 GM/DL (3.2-5.2); ALT/SGPT 19 U/L (12-78); BILIRUBIN,DIRECT < 0.1 MG/DL (0.0-0.2); BILIRUBIN,TOTAL 0.2 MG/DL (0.2-1.0); BLOOD UREA NITROGEN 14 MG/DL (7-18); CALCIUM LEVEL 8.9 MG/DL (8.5-10.1); CARBON DIOXIDE LEVEL 26 MEQ/L (21-32); CHLORIDE LEVEL 109 MEQ/L (98-107); CREATININE FOR GFR 0.79 MG/DL (0.55-1.30); FREE T4 0.83 NG/DL (0.76-1.46); GLOMERULAR FILTRATION RATE > 60.0 (>60); GLUCOSE, FASTING 118 MG/DL (70-100); POTASSIUM SERUM 4.2 MEQ/L (3.5-5.1); SODIUM LEVEL 141 MEQ/L (136-145); TOTAL PROTEIN 7.1 GM/DL (6.4-8.2)
--- NOTE | 2021-06-25 01:51 | REPVR ---
PROCEDURE INFORMATION: Exam: XR Chest Exam date and time: 06/25/2021 12:43 AM Age: 36 years old Clinical indication: Chest pain TECHNIQUE: Imaging protocol: XR of the chest. Views: 1 view. COMPARISON: CR Shoulder, complete LEFT 08/23/2020 5:36 PM FINDINGS: Lungs: Unremarkable. No consolidation. No pulmonary edema. Pleural spaces: Unremarkable. No pleural effusion. No pneumothorax. Heart/Mediastinum: Unremarkable. No cardiomegaly. Bones/joints: Unremarkable. IMPRESSION: No acute findings. Electronically signed by: Shaji Rachel On 06/25/2021 01:50:26 AM
[2021-06-25 02:15] VITALS: BP 137/87
--- NOTE | 2021-06-25 16:07 | ECGEPIP ---
[facility] - ED Test Date: 2021-06-24 Pat Name: SAV MANN Department: Room: - Gender: Female Head Bucker: DEANNA : 1985 Requested By: ALLYSON Blue Order Number: [id number] Reading MD: Jose Guadalupe North Measurements Intervals [place] Rate: 76 P: 64 AR: 184 QRS: 35 QRSD: 84 T: 13 QT: 402 QTc: 452 Interpretive Statements Normal sinus rhythm Nonspecific T wave abnormality Similar to tracing done 08-23-20 Electronically Signed on 06-25-2021 16:06:57 EST by Jose Guadalupe North
== END 2021-06-25 02:27 | disposition home or self-care (01) ==
LOC: M ED 23:22
DX: R07.9 Chest pain, unspecified (principal); F17.200 Nicotine dependence, unspecified, uncomplicated; Z88.5 Allergy status to narcotic agent; Z82.49 Family history of ischemic heart disease and other diseases of the circulatory system; Z90.89 Acquired absence of other organs

== ENCOUNTER 2021-07-30 20:16 | Emergency (ER) | payer MEDICAID, OTHER ==
[~2021-07-30] VITALS: Ht 175.3 cm; Wt 95.6 kg
[~2021-07-30 20:16] MED LIST changes: +AMOX875T2 PO; +PRED20TA PO
[2021-07-30 22:21] VITALS: BP 138/88
== END 2021-07-30 22:32 | disposition home or self-care (01) ==
LOC: M ED 20:16
DX: R07.9 Chest pain, unspecified (principal); F41.9 Anxiety disorder, unspecified; Z90.49 Acquired absence of other specified parts of digestive tract; Z88.5 Allergy status to narcotic agent

== ENCOUNTER 2022-03-23 19:11 | Emergency (ER) | payer OTHER, MEDICAID ==
[~2022-03-23] VITALS: Ht 175.3 cm; Wt 92.9 kg
[2022-03-23 19:11] VITALS: BP 114/74
== END 2022-03-23 21:28 | disposition left against medical advice (07) ==
LOC: M ED 19:11
DX: Z53.21 Procedure and treatment not carried out due to patient leaving prior to being seen by health care provider (principal)

== ENCOUNTER → 2022-03-24 | Outpatient (REF) | payer OTHER ==
[2022-03-24 17:23] LABS: HCG, SERUM QUALITATIVE NEGATIVE (NEGATIVE)
[2022-03-24 17:39] LABS: HCG, SERUM QUANTITATIVE < 1.0 MIU/ML
== END ==
LOC: M LAB REF 16:02
PROVIDERS: ATTEND Physician Assistant Medical
DX: Z32.02 Encounter for pregnancy test, result negative (principal)

== ENCOUNTER 2022-08-10 10:04 | Emergency (ER) | payer MEDICAID, OTHER ==
[~2022-08-10] VITALS: Ht 175.3 cm; Wt 90.6 kg
[2022-08-10 10:06] VITALS: BP 128/82
[2022-08-10 10:41] LABS: BASO # 0.1 10^3/uL (0.0-0.2); BASO % 0.6 % (0.0-1.0); EOS # 0.1 10^3/uL (0.0-0.5); EOS % 1.4 % (0.0-3.0); HEMATOCRIT 39.9 % (36.0-47.0); HEMOGLOBIN 12.9 g/dl (12.0-15.5); LYMPH % 25.3 % (24.0-44.0); MEAN CORPUSCULAR HEMOGLOBIN 29.1 pg (27.0-33.0); MEAN CORPUSCULAR HGB CONC 32.3 g/dl (32.0-36.5); MEAN CORPUSCULAR VOLUME 89.9 fl (80.0-96.0); MONO # 0.5 10^3/uL (0.0-0.8); MONO % 6.3 % (2.0-8.0); NEUTROPHILS # 5.2 10^3/uL (1.5-8.5); PLATELET COUNT, AUTOMATED 233 10^3/uL (150-450); RED BLOOD COUNT 4.44 10^6/uL (4.00-5.40); WHITE BLOOD COUNT 7.9 10^3/uL (4.0-10.0)
[2022-08-10 11:05] LABS: LIPASE 36 U/L (12-53)
[2022-08-10 11:06] LABS: ALBUMIN 3.7 G/DL (3.2-5.2); ALKALINE PHOSPHATASE 64 U/L (46-116); ALT/SGPT 14 U/L (7.0-40); AST/SGOT 18 U/L (<34); BILIRUBIN,DIRECT 0.2 MG/DL (<0.4); BILIRUBIN,TOTAL 0.6 MG/DL (0.3-1.2); BLOOD UREA NITROGEN 10 MG/DL (9-23); CALCIUM LEVEL 9.2 MG/DL (8.5-10.1); CARBON DIOXIDE LEVEL 27 MMOL/L (20-31); CHLORIDE LEVEL 106 MMOL/L (98-107); CK-MB VALUE MASS < 1.0 NG/ML (<3.6); CPK CREATINE PHOSPHOKINASE 59 U/L (34-145); GLOMERULAR FILTRATION RATE > 60.0 (>60); GLUCOSE, FASTING 89 MG/DL (60-100); MB/CK RELATIVE INDEX 1.69 (< OR =4); SODIUM LEVEL 139 MMOL/L (136-145); TOTAL PROTEIN 6.7 G/DL (5.7-8.2)
[2022-08-10 12:20] LABS: CK-MB VALUE MASS < 1.0 NG/ML (<3.6)
[2022-08-10 12:21] LABS: CPK CREATINE PHOSPHOKINASE 56 U/L (34-145); MB/CK RELATIVE INDEX 1.78 (< OR =4)
== END 2022-08-10 14:04 | disposition left against medical advice (07) ==
LOC: M ED 10:04
DX: Z53.21 Procedure and treatment not carried out due to patient leaving prior to being seen by health care provider (principal)

== ENCOUNTER → 2022-12-03 | Outpatient (CLI) | payer OTHER | LOC: M WUC 12:13 | PROVIDERS: ATTEND Nurse Practitioner Family | DX: M53.3 Sacrococcygeal disorders, not elsewhere classified (principal) ==

== ENCOUNTER → 2022-12-19 | Outpatient (REF) | payer OTHER ==
[2022-12-19 17:58] LABS: APPEARANCE, URINE CLEAR (CLEAR); BACTERIA, URINE AUTO NEGATIVE (NEGATIVE); BILIRUBIN, URINE AUTO NEGATIVE (NEGATIVE); BLOOD, URINE BLOOD NEGATIVE (NEGATIVE); COLOR, URINE YELLOW (YELLOW); GLUCOSE, URINE (UA) AUTO NEGATIVE (NEGATIVE); KETONE, URINE AUTO TRACE mg/dL (NEGATIVE); LEUKOCYTE ESTERASE, URINE AUTO NEGATIVE (NEGATIVE); MUCUS, URINE SMALL (NEGATIVE); NITRITE, URINE AUTO NEGATIVE (NEGATIVE); PROTEIN, URINE AUTO NEGATIVE (NEGATIVE); RBC, URINE AUTO 3 /HPF (0-3); SPECIFIC GRAVITY URINE AUTO 1.025 (1.002-1.035); SQUAMOUS EPITHELIAL CELL UR AU 1 /HPF (0-6); WBC, URINE AUTO 3 /HPF (0-3)
[2022-12-19 19:47] LABS: GC DNA AMPLIFICATION NEGATIVE (NEGATIVE)
== END ==
LOC: M LAB REF 17:01
PROVIDERS: ATTEND Physician Assistant Medical
DX: N39.0 Urinary tract infection, site not specified (principal); Z20.2 Contact with and (suspected) exposure to infections with a predominantly sexual mode of transmission